=== PATIENT | female | born 1945 | race Caucasian/White ===

== ENCOUNTER 2020-05-06 10:07 | Day surgery (SDC) | payer MEDICARE ==
[2020-05-05 13:50] VITALS: BMI 27.3
[2020-05-06 10:27] LABS: PTT 28.6 sec (22.9-36.1)
[2020-05-06 10:28] LABS: INR-International Normal Ratio 1.1; Prothrombin Time 14.2 sec (12.0-14.7)
[2020-05-06] MEDS ORDERED: Sodium Bicarbonate 2.5 MEQ/5 ML VIAL ONE (10:44)
[2020-05-06] MEDS ORDERED: Lidocaine 1% PF 5 ML VIAL ONE (10:44)
--- NOTE | 2020-05-06 12:22 | ULT ---
ULTRASOUND-GUIDED PARACENTESIS DIAGNOSTIC AND THERAPEUTIC: DATE: 05/06/2020 HISTORY: 75-year-old female with symptomatic ascites: Abdominal pain and swelling. Highly suspicious for malig nant ascites due to peritoneal carcinomatosis on recent CT. TECHNIQUE: Signed informed consent obtained. A four-quadrant survey of abdomen performed. Site selected for puncture: Left lower quadrant. Overlying skin prepared and draped in usual sterile fashion. 25-gauge needle used to apply buffered lidocaine superficially and deeply. 5 Portuguese Yueh catheter with stylette advanced into the pocket of free intraperitoneal fluid. Drainage was limited to 4 L because this was a first-time paracentesis. After drainage, the Yueh catheter was removed. Patient tolerated the procedure well. No complications. One of the 1.6 L bags containing ascites fluid, was sent to laboratory for analysis. FINDINGS: Volume of ascites prior to procedure:large. Volume of ascites fluid in the drainage pocket after drainage:large. Volume of ascites fluid drained:4000 mL IMPRESSION: Successful therapeutic paracentesis, with drainage of 4 L of ascites fluid.
[2020-05-06 13:29] VITALS: BP 144/84; TEMP 98.1
[2020-05-06 13:34] LABS: RBC Count-Automated (BF) 374 /cu.mm; WBC/Nucleated-Auto (BF) 1104 uL
[2020-05-06] MEDS ORDERED: Prevnar 13-Val Conj/PF 0.5 ML SYRINGE IM ONE (14:00)
[2020-05-06 14:29] LABS: BF Color Yellow; Body Fluid Source Ascites Body Fluid; Clarity Hazy (Clear); Tube # EDTA
[2020-05-06 14:33] LABS: BF Segmented Neutrophils 5 %; Cell Count Non Hematic 27 %; Lymphocytes 66 %
== END 2020-05-06 12:00 | disposition home or self-care (01) ==
LOC: ULT 10:07
PROVIDERS: ATTEND Internal Medicine Gastroenterology
PROC: 0W9G3ZX Drainage of Peritoneal Cavity, Percutaneous Approach, Diagnostic (ICD-10-PCS; principal; 2020-05-06)
PROC: BW40ZZZ Ultrasonography of Abdomen (ICD-10-PCS; 2020-05-06)
DX: C80.1 Malignant (primary) neoplasm, unspecified (principal); R18.0 Malignant ascites; C78.6 Secondary malignant neoplasm of retroperitoneum and peritoneum; K21.9 Gastro-esophageal reflux disease without esophagitis; E11.9 Type 2 diabetes mellitus without complications; M19.90 Unspecified osteoarthritis, unspecified site; Z87.891 Personal history of nicotine dependence; Z79.84 Long term (current) use of oral hypoglycemic drugs; Z79.899 Other long term (current) drug therapy; Z88.8 Allergy status to other drugs, medicaments and biological substances
CPT/HCPCS: 49083; 82042; 84157; 85060; 85610; 85730; 88112; 88305; 88313; 88341; 88342; 89051

== ENCOUNTER 2020-05-13 15:31 | Outpatient (CLI) | payer MEDICARE ==
--- NOTE | 2020-05-13 16:14 | ULT ---
Exam:Rightlower extremity venous ultrasound with Doppler HISTORY: Rightlower extremity swelling, times a few days COMPARISON: 03/27/2017 TECHNIQUE: Grayscale, color flow, Doppler imaging and spectral wave muscle performed right lower extr emity venous system FINDINGS: There is compressibility, presence of flow and augmentation in the common femoral vein, femoral vein and popliteal vein. There is flow in the posterior tibial vein. There is flow in the greater saphenous vein and profunda femoral vein IMPRESSION: No thrombus in the right lower extremity deep venous system.
== END 2020-05-13 15:32 | disposition home or self-care (01) ==
LOC: ULT 15:31
PROVIDERS: ATTEND Internal Medicine Hematology & Oncology
DX: M79.89 Other specified soft tissue disorders (principal)

== ENCOUNTER 2020-05-18 17:54 | Inpatient (IN) | payer MEDICARE, OTHER ==
[~2020-05-18 17:54] MED LIST: Benzocaine 20% Spray 60 ML CAN ONE
--- NOTE | 2020-05-18 19:48 | PDOC.FPRHP ---
- History of Present Illness Chief Complaint: fever History of Present Illness: Pt is a 75yo female with recent dx of stage 3 ovarian cancer who is a direct admit from [facility] for fever. She was diagnosed with ovarian cancer in April 2020 and had first round of chemo last . Dr. Bustamante is her oncologist. She has been feeling weak and having diarrhea. Went to appointment with multicultural manager and was found to have fever and sent to ED. She says she hasn 't been eating due to decreased appetite. Says she is drinking fluids. C/o SOB due to increasing abdominal distention. States that her cancer has spread to peritoneum. Had paracentesis done on 05/17 and one week prior, most recently they removed 5L, replaced 2L. In ED: Tmax 102F. Found to have neutropenic fever, WBC 0.8. Na 129. Given cefepime, levaquin and 3L IVF ED Course: 2L LR, 1L NS, levofloxacin 500mg po, cefepime 2g, acetaminophen 1g, Dilaudid 0.25mg - Allergies/Adverse Reactions Allergies Allergy/AdvReac Type Severity Reaction Status Date / Time fluorouracil [From Efudex] Allergy Severe edema/hives Verified 05/19/20 00:17 - Home Medications Medication Instructions Recorded Confirmed Type Esomeprazole Magnesium [Nexium 40 mg PO DAILY 05/05/20 05/17/20 History 24Hr] Mineral Oil 30 ml PO DAILY PRN 05/05/20 05/17/20 History Multivit-Min/Iron/Folic/Lutein 1 tablet PO DAILY 05/05/20 05/17/20 History [Centrum Silver Women] Rosuvastatin [Crestor] 20 mg PO DAILY 05/05/20 05/17/20 History Simethicone [Gas-X] 62.5 mg PO BID 05/05/20 05/17/20 History glipiZIDE [Glucotrol XL] 5 mg PO QAM-WM 05/05/20 05/17/20 History sitaGLIPtin Phosphate [Januvia] 100 mg PO DAILY 05/05/20 05/17/20 History traMADol HCl [Tramadol HCl] 50 mg PO Q6HR PRN 05/14/20 05/17/20 History HYDROcodone/Acetaminophen 1 each PO Q6H PRN 05/17/20 05/17/20 History [Hydrocodone-Acetamin 5-325 mg] Loperamide HCl [Imodium A-D] 2 mg PO ASDIR PRN 05/17/20 05/17/20 History Ondansetron [Zofran ODT] 8 mg PO Q8HR PRN 05/17/20 05/17/20 History - History PMHx: Stage 3 ovarian caner with mets to peritoneum and possibly kidney, GERD, DM PSHx: partial hysterectomy, vaginal prolapse repair, R shoulder FHx: alcoholism in multiple family members Social: former smoker 1ppd for 28years, no alcohol or drug use - Review of Systems General: reports: fever/chills, fatigue Eyes: denies: eye pain ENT: denies: nasal congestion Respiratory: reports: shortness of breath. denies: cough Cardiovascular: denies: chest pain, palpitation, edema Gastrointestinal: reports: diarrhea, abdominal pain. denies: vomiting Genitourinary: denies: dysuria Skin: denies: rashes Musculoskeletal: denies: swelling Neurological: reports: weakness - Vital signs BP: 70/46, HR 119, RR 20, O2 94% on 1L NC, T 97.8F - Physical Exam -Constitutional: appeared lethargic, talking with eyes closed throughout exam, AO x3, increased work of breathing HEENT: normocephalic and atraumatic, grossly normal vision, grossly normal hearing -HEENT: dry MM Neck: trachea midline Chest: no-tender to palpation Heart: RRR, normal S1/S2, no murmurs/rubs/gallops, pulses present Abdomen: soft, bowel sounds present -Abdomen: distended abdomen, tender to palpation over lower quadrants Musculoskeletal: normal structure, normal tone Neurological: no focal deficit -Skin: pale appearing, cap refill 3s, poor turgor Psychiatric: intact recent and remote memory FMR H&P: Results - Labs Result Diagrams: 05/19/20 03:59 05/19/20 03:59 FMR H&P: A/P - Plan #Neutropenic fever 2/2 chemotherapy - WBC 0.8, Tmax 102F at outside ED - pending blood and urine cultures and UA to evaluate for source - CXR at outside hospital read as no acute process - oncology, Dr Bustamante, was consulted from outside hospital, will put in consult here, appreciate recs - pending procal, C diff, COVID - Abx: Levaquin and cefepime started at outside hospital, will continue. consider adding vanc if hemodynamically unstable or if pneumonia thought to be source. Current hypotension thought to be due to dehydration - Reglan PRN for nausea; tylenol PRN for fever; morphine PRN for pain with parameter of not given if Ps<100 #Hypotension - likely due to dehydration - give 3L IVF at outside hospital - on PE had dry MM, poor turgor and prolonged cap refill - 1L bolus NS and then mIVF #Hyponatremia - Na 129 - Will give 1L NS and then mIVF - recheck BMP in approx 6 hours #diarrhea - started after first round of chemo - pending C diff #thrombocytopenia - Plt 143 - Will continue to monitor #hypoalbuminemia - paracentesis yesterday with removal of 5L and replaced 2L - consider giving albumin if hypotension persists #stage 3 ovarian cancer - consult oncology - morphine prn pain - consult palliative care #GERD - continue home med: esomeprazole #DM - SSI - glucose checks ACHS Diet: regular Ppx: Lovenox Code: DNR Dispo: admit to onc, inpt, LOS>48hours Case discussed with Dr. Aguilar FMR H&P: Upper Level - Plan Date/Time: 05/18/201947 I, Mandie Campos MD, have evaluated this patient and agree with findings/plan as outlined by director internal audit resident. Pertinent changes/additions are listed here. This is a 75yo F here today after being sent over from [facility] for neutropenic fever, PMH of stage 3 ovarian cancer with mets to peritoneum. She is s/p first round of chemo last week. Has had to get 2 paracentesis over the last week due to increasing fluid. She states that she was found to have an elevated temp of 102.5F. She has been feeling very weak, decreased appetite, nausea and diarrhea over the last week since chemo. She follows with Dr. Bustamante. No sick contacts. Tested negative for COVID 2-3 weeks ago. See director internal audit note for full details on HPI and other histories. PE remarkable for mildly distended abdomen that was diffusely tender to touch, dry MM, poor skin turgor. Plan: Neutropenic fever 2/2 recent chemotherapy Severe neutropenia - ANC 152. Fever up to 102.5F at outside ER. CXR with no consolidations. No source of infection currently. - Consult oncology, Dr. Bustamante aware of patient. Appreciate recs. - Blood and Urine cx pending. UA pending. - Procal pending. - Levoquin and cefepime for broad spectrum abx coverage. Will not add gram + coverage at this time as no sign of skin/soft tissue infxn, mucositis, catheter related infection, PNA. She did have low BP but thought to be more to dehydration/malnutrition at this time. - COVID swab pending - Reglan PRN for nausea; tylenol PRN for fever; morphine PRN for pain Hyponatremia Na 129, likely 2/2 malnutrition - Will give 1L NS and give mIVF. Will recheck BMP to make sure going in right direction. Hypotension s/p 3 L at outside ER. - Still clinically dry, will give another L of NS and start on mIVF. Encourage PO hydration. Reg diet. Thrombocytopenia Plt 143 - Will continue to monitor. May need plt transfusion if <20 Diarrhea likely 2/2 chemo - Will order C diff just to r/o Dispo: admit to onc, inpt Diet: reg Ppx: Lovenox Code: DNR - palliative care consulted for family support, symptom management Case discussed with Dr. Aguilar Addendum - Attending - Attending Attestation Date/Time: 05/18/20 3530 I personally evaluated the patient and discussed the management with Dr. Pal I agree with the History, Examination, Assessment and Plan documented above with any addition or exceptions noted below- 75yo F here today after being sent over from [facility] for neutropenic fever, PMH of stage 3 ovarian cancer with mets to peritoneum. She is s/p first round of chemo last week. Has had to get 2 paracentesis over the last week due to increasing fluid. She states that she was found to have an elevated temp of 102.5F. She has been feeling very weak, decreased appetite, nausea and diarrhea over the last week since chemo. She follows with Dr. Bustamante. No sick contacts. Tested negative for COVID 2-3 weeks ago. PMH/PSH/Meds/SH reviewed and agree with resident's documentation. T102.5 P120 RR22 BP 70/46 Exam repeated by me and agree with resident's findings. Labs : WBC=0.8, H/H=12.7/37.5, Ntl=740, Diff=19N/80L, Km=356, K=3.8, Cl=93, CO2=22, BUN/Cr=20/0.81, Jpln=439, trop I=0.02. CXR- NAD. A/P: 1) Neutropenic fever- Admit to oncology/medical. Blood cultures drawn in [facility]. Will obtain U/A and urine culture. Continue cefepime and levaquin. Will check procalcitonin. 2) Septic shock - will give additional fluid bolus and if BP remains low, will need to consider pressors. 3) Stage 3 ovarian cancer - Dr. Bustamante aware of patient. 4) DM- diet controlled; continue to monitor BG.
[2020-05-18] MEDS ORDERED: Acetaminophen 325 MG TAB PO PRN (20:43)
[2020-05-18] MEDS ORDERED: Ondansetron ODT 4 MG TAB PO PRN (20:43)
[2020-05-18] MEDS ORDERED: Acetaminophen 650 MG Suppository PR PRN (20:43)
[2020-05-18] MEDS ORDERED: Morphine 4 MG/ML VIAL SLOW IVP PRN (21:10)
[2020-05-18] MEDS ORDERED: Sodium Chloride 0.9% 1,000 ML IV SCH ×2 (21:15→23:59)
[2020-05-18] MEDS ORDERED: HumaLOG 300 UNITS/3 ML VIAL SC PRN (21:32)
[2020-05-18] MEDS ORDERED: Dextrose 50% Abboject 50 ML SYRINGE SLOW IVP PRN (21:32)
[2020-05-18] MEDS ORDERED: Dextrose 5% in Water 1,000 ML IV PRN (21:32)
[2020-05-18] MEDS: Ondansetron PF 4 MG/2 ML Vial IVP PRN (21:40)
[2020-05-18 21:54] LABS: ALT (SGPT) 21 U/L (8-55); AST (SGOT) 29 U/L (5-34); Albumin 2.1 g/dL (3.4-4.8); Alkaline Phosphatase 40 U/L (40-110); Anion Gap 12 mmol/L (10-20); BUN (Urea Nitrogen) 22 mg/dL (9.8-20.1); Bilirubin, Total 0.5 mg/dL (0.2-1.2); Calc. Creatinine Clearance 0 mL/min (70-130); Carbon Dioxide 21 mmol/L (23-31); Chloride 99 mmol/L (98-107); Estimated GFR-MDRD 75; Globulin 2.5 g/dL (2.4-3.5); Glucose 101 mg/dL (83-110); Potassium 3.1 mmol/L (3.5-5.1); Protein, Total 4.6 g/dL (6.0-8.3); Sodium 129 mmol/L (136-145)
[2020-05-18 22:03] LABS: Bacteria/HPF 1+ HPF (None Seen); Bilirubin Negative (Negative); Blood, Urine Negative (Negative); Clarity Turbid (Clear); Glucose, Urine (Dipstick) 30 mg/dL (Negative); Ketone, Urine 20 mg/dL (Negative); Leukocyte Negative Leu/uL (Negative); Nitrite Negative (Negative); Protein, Urine (Dipstick) 70 mg/dL (Neg-Trace); RBC/HPF 0-3 HPF (0-3); Squamous Epithelial None Seen HPF (0-3); pH, Urine 5.5 (5.0-9.0)
[2020-05-18] MEDS: Sodium Chloride 0.9% 1,000 ML IV SCH (22:51)
--- NOTE | 2020-05-18 23:18 | PDOC.EVN ---
Event Note - Event Note Event Note: Shira Hernandez called @ 2300. Nurse said manual BP was 52/48. Pt still responsive, AOx3, no other change in VS. Placed in trendelenburg. Repeat BP 72/58. Pt examined at bedside by Andres Huffman and Jeff. Parks had been placed, 500mL mario colored urine. Had been given 1L bolus NS and started on maintenance fluid. Will give another bolus IVF. Transfer to CCU. Will start on levophed gtt through peripheral line. Consider central line if on levophed drip longer than 24hr.
[2020-05-18] MEDS: Norepinephrine 8 MG/0.9% NS 250 ML IVPB PRN (23:58)
[2020-05-19] MEDS: Morphine 4 MG/ML VIAL SLOW IVP PRN ×4 (00:44→23:13)
[2020-05-19] MEDS ORDERED: Potassium Chloride 20 MEQ TAB PO SCH (01:15)
[2020-05-19] MEDS: Ondansetron PF 4 MG/2 ML Vial IVP PRN ×3 (02:25→17:42)
[2020-05-19 04:37] LABS: ALT (SGPT) 29 U/L (8-55); AST (SGOT) 53 U/L (5-34); Albumin 2.2 g/dL (3.4-4.8); Alkaline Phosphatase 45 U/L (40-110); Anion Gap 15 mmol/L (10-20); BUN (Urea Nitrogen) 23 mg/dL (9.8-20.1); Bilirubin, Total 0.6 mg/dL (0.2-1.2); Calc. Creatinine Clearance 71 mL/min (70-130); Carbon Dioxide 19 mmol/L (23-31); Chloride 100 mmol/L (98-107); Estimated GFR-MDRD 77; Globulin 2.8 g/dL (2.4-3.5); Glucose 71 mg/dL (83-110); Potassium 3.5 mmol/L (3.5-5.1); Sodium 130 mmol/L (136-145)
[2020-05-19 04:44] LABS: Hemoglobin 12.9 g/dL (12.0-16.0); Mean Corpuscular HGB CONC 31.9 g/dL (32.0-36.0); Mean Corpuscular Hemoglobin 29.8 pg (27.0-31.0); Mean Corpuscular Volume 93.5 fL (78.0-98.0); Mean Platelet Volume 9.1 fL (7.4-10.4); Platelet Count 81 thou/uL (130-400); Red Blood Cell (RBC) Count 4.34 mill/uL (4.20-5.40); White Blood Cell (WBC) Count 0.6 thou/uL (4.8-10.8)
[2020-05-19 05:18] LABS: Eosinophils 2 % (0-10); Lymphocytes 86 % (21-51); MDiff Complete? YES; Monocytes 2 % (0-10); Neutrophil 10 % (42-75); Platelet Morphology Comment Appears Decreased
[2020-05-19] MEDS: Cefepime 2 GM in Sodium Chloride 0.9% 100 ML IVPB SCH ×2 (06:03→17:08)
[2020-05-19] MEDS: Sodium Chloride 0.9% 1,000 ML IV SCH ×2 (06:03→09:17)
--- NOTE | 2020-05-19 08:13 | PDOC.BPN ---
- Brief Progress Note Patient has PCP of Dr. Osborne, d/t this we are transferring care to the [facility]. I called and spoke with on-call hospitalist and gave checkout at 0810. Physician accepted care and will see the patient today.
[2020-05-19] MEDS: Enoxaparin Sodium 40 MG/0.4 ML SYRINGE SC SCH (09:18)
[2020-05-19] MEDS ORDERED: Dextrose 50% Abboject 50 ML SYRINGE SLOW IVP PRN (09:41)
[2020-05-19] MEDS ORDERED: Dextrose 5% in Water 1,000 ML IV PRN (09:41)
[2020-05-19] MEDS: Dextrose 5 % And 0.9 % NaCl 1,000 ML IV SCH ×3 (09:53→23:50)
[2020-05-19] MEDS ORDERED: Vancomycin 1 GM in Premix Bag 1 BAG IVPB SCH (10:00)
[2020-05-19] MEDS ORDERED: Vancomycin HCl 1.5 GM in Sodium Chloride 0.9% 250 ML 300 ML IVPB SCH (11:00)
--- NOTE | 2020-05-19 12:40 | CON ---
DATE OF CONSULTATION: REASON FOR CONSULTATION: Ovarian cancer. HISTORY OF PRESENT ILLNESS: Ms. Whitlock is a 75-year-old female who was diagnosed with high-grade papillary carcinoma earlier this month. Biopsy was obtained from ascitic fluid. She was having abdominal distention and bloating, saw Dr. Butler, and a paracentesis was performed, which led to the diagnosis. She started chemotherapy last week on and then had a paracentesis on Sunday with removal of 5 L. They then had replaced 2 L back secondary to hypotension. She began to have worsening shortness of breath and abdominal distention and presented to the emergency room in [place]. She was neutropenic and had fever. She was transferred to this facility for further treatment. She was given several liters of fluid. She remained hypotensive and was transferred to the ICU. She remains on a Levophed drip for blood pressure support. She is tachycardic. Her stool tested positive for C difficile and she is on appropriate antibiotics. She complains of weakness and diarrhea. Plan for the patient to have 3 cycles of neoadjuvant chemotherapy followed by surgery with 3 cycles of adjuvant chemotherapy. She was to follow up Gynecology Oncology in the next week or so. PAST MEDICAL HISTORY: 1. Newly diagnosed papillary carcinoma. 2. Type 2 diabetes. PAST SURGICAL HISTORY: 1. Vaginal hysterectomy with ovaries intact. 2. Cataract surgery. 3. Bladder and rectum prolapse repair. ALLERGIES: NO KNOWN DRUG ALLERGIES. HOME MEDICATIONS: 1. Glipizide. 2. Januvia. 3. Nexium. 4. Rosuvastatin. 5. Compazine. 6. Hydrocodone. 7. Zofran. FAMILY HISTORY: No history of ovarian cancer. SOCIAL HISTORY: , one child. A [id number] history of smoking. No alcohol or illicit drug use. REVIEW OF SYSTEMS: A 10-point review of systems is negative except for noted in HPI. PHYSICAL EXAMINATION: VITAL SIGNS: Temperature 98.3, pulse is 126, respiratory rate 31, BP is 94/55, and she is 93% on 2 L nasal cannula. GENERAL: This is a chronically ill-appearing female, in mild distress. HEENT: Normocephalic and atraumatic. Pupils equal and reactive to light. NECK: Supple. CV: Regular rate and rhythm. She is tachycardic. LUNGS: Clear anterior. ABDOMEN: Distended and nontender. Bowel sounds are positive. EXTREMITIES: No clubbing or cyanosis. SKIN: No rash. HEMATOLOGIC: No petechiae or purpura. NEUROLOGIC: Nonfocal. PERTINENT LABORATORY DATA AND X-RAYS: Current WBCs are 0.6, hemoglobin 12.9, hematocrit 40.6, and platelet count 81,000. She has 10% neutrophils and 86% lymphocytes. Sodium 130, potassium 3.5, chloride 100, CO2 of 19, BUN 23, creatinine 0.74, and calcium 7. Bilirubin 0.6, AST is 53, ALT is 29, and alkaline phosphatase is 45. Serum total protein is 5, albumin 2.2, and globulin 2.8. Prolactin is 21.7. Urine shows 1+ bacteria with negative leukocyte esterase, negative nitrites. ASSESSMENT: 1. Neutropenic fever. 2. Ovarian cancer status post cycle 1 of chemotherapy. 3. Clostridium difficile infection. 4. Ascites status post paracentesis 2 days ago. DISCUSSION: The patient is on appropriate antibiotics. Her blood pressure is supported with IV fluids and Levophed drip. We will start pegfilgrastim to increase her white count. The case has been discussed with Dr. Bustamante. The patient is a DNR. We will follow along with her hospital course. Thank you for the consult. Job ID: [id number]
--- NOTE | 2020-05-19 12:48 | PDOC.EVN ---
Event Note - Event Note Event Note: Inherited the patient this morning. Abdominal tenderness persists though unlikely peritonitis. Escalated ABx due to HD instability by adding vancomycin. C. diff assay +antigen, -ve PCR tox c/w nontoxigenic c.diff. Likely etiology of diarrhea chemotherapy-related, possibly mucositis (will obtain records re: chemo ). Pending ID evaluation. Oncology and palliative team onboard
[2020-05-19 12:56] LABS: SARS-CoV-2 MS2 Positive; SARS-CoV-2 N Gene Negative; SARS-CoV-2 S Gene Negative; SARS-CoV-2 by NAA Not Detected (NotDetected); SARS-CoV-2 orf1ab Negative
[2020-05-19] MEDS: Loperamide HCl 2 MG CAP PO PRN ×3 (13:26→23:14)
--- NOTE | 2020-05-19 14:31 | PDOC.PALCO ---
Palliative Care Consult - Consult Details Requesting Physician: Dr Campos Reason for Consult: goals of care, family support - Pertinent HPI 75 year old female who lives in an independent home setting with her . She was recently diagnosed with high grade papillary carcinoma late April. Initial chemotherapy was 05/13/2020. Paracentesis on 05/17/2020 with removal of 5 liters of fluid, with subsequent replacement of 2 liters of fluid for hypotension. Incontinent of bowel with nausea over the weekend. Onset and increase in shortness of breath and abdominal distention and presented to the emergency room in [place] where she was found to be neutropenic with fever. Transferred to [facility] for higher level of care. Fluid rehydration was attempted but secondary to persistent hypotension she was transferred to CCU for higher level of care. Levophed. ABX therapy for C dif. Significant abdominal pain, nausea, weakness. - Pertinent PMH Recent diagnosis of papillary carcinoma, DM II - Social History Smoking Status: Never smoker Smoking: no tobacco exposure Alcohol Use: rarely Drug Use History: none Living Situation: independent, - Medications MAR Reviewed: Yes - Allergies Allergies/Adverse Reactions: Allergies Allergy/AdvReac Type Severity Reaction Status Date / Time fluorouracil [From Efudex] Allergy Severe edema/hives Verified 05/19/20 00:17 - Subjective Weakness, short of breath with conversation. Abdominal pain, nausea - ROS Constitutional: alert, loss appetite, weakness ENT: dry mouth, other (Denies difficulity swallowing, congestion) Respiratory: shortness of breath Cardiology: light headedness Gastrointestinal: diarrhea, nausea, vomiting Musculoskeletal: other (Denies musculoskeletal pain) Neurological: other (Negative for confusion,tremor) - Objective Vital Signs: Vital Signs - Most Recent Temp Pulse Resp BP Pulse Ox 97.7 F 119 H 20 70/46 L 99 05/19/20 12:00 05/18/20 19:44 05/18/20 19:44 05/18/20 19:44 05/19/20 10:41 Palliative Performance Scale: 40 (However prior to recent health status change PPS 90) - Physical Exam Constitutional: ill appearing HEENT: EOMI, moist MMs Respiratory: no rhonchi, no wheezing, unlabored breathing Cardiovascular: RRR Deviation from normal: Tachycardic Gastrointestinal: incontinent (Distended, tender) Genitourinary: barber catheter Musculoskeletal: no cyanosis, no clubbing Neurology: moves all 4 limbs, no focal deficits Skin: cap refill <2 seconds Deviation from normal: Pallor Psychiatric: A&O x 3, depressed - Problem List (1) Palliative care encounter Code(s): Z51.5 - ENCOUNTER FOR PALLIATIVE CARE Current Visit: Yes Status: Acute (2) Neutropenic fever Code(s): D70.9 - NEUTROPENIA, UNSPECIFIED; R50.81 - FEVER PRESENTING WITH CONDITIONS CLASSIFIED ELSEWHERE Current Visit: Yes Status: Acute (3) Ascites Code(s): R18.8 - OTHER ASCITES Current Visit: Yes Status: Acute (4) Ovarian cancer Current Visit: Yes Status: Acute - Plan/Recommendations Plan: Mrs Whitlock confirms that she is a DNAR. Her daughter further relayed that this is her mothers wishes. Mrs Whitlock states she wishes to stop treatment, and go home. Discussed working through current health issues and to further discuss with Oncology. Her anniversary is today so discussed goal for today to be seeing her and working toward improvement of pain. Then discuss tomorrow with Dr Bustamante, her and daughter about continuation of chemo and surgery. As per patient request visited with her daughter Samantha and Femi. Mrs Whitlock has one daughter and two grandchildren , they call her Santosh. She cares for her mother who is in a long-term in [place], and her brother who was in a tragic accident last fall and now resides in a long-term in [place]. Her daughter relays that he mother has always been a "go getter" and caregiver. She also relayed that in the past her mother would experience hopelessness and depression. Emotional Support, consideration for increase in pain medication. Communicated with Dr Bustamante and Dr Rios. [75] minutes spent on this encounter with >50% of the time in counseling and coordination of care. Thank you for this very appropriate consult.
[2020-05-19] MEDS: Albumin 25% 25 GM/100 ML BOT IVPB SCH ×2 (14:46→20:43)
[2020-05-19] MEDS: Vancomycin HCl 25 MG/ML Oral PO SCH (14:56)
--- NOTE | 2020-05-19 17:56 | CON ---
DATE OF CONSULTATION: 05/19/2020 REASON FOR CONSULTATION: Neutropenic fever. HISTORY OF PRESENT ILLNESS: A 75-year-old with history of type 2 diabetes with stage III ovarian cancer with peritoneal and possibly retroperitoneal mets, who lives in [place] and has received her 1st course of chemotherapy, monitored by Dr. Bustamante. Paracentesis performed on 05/06, yielded positive for high-grade papillary carcinoma, so this is a quite recent diagnosis and there is also an issue of possible obstruction of one of her kidneys and her urologist in [place] was considering placement of a stent until she developed this complication. The imaging study was done on 05/04 and it showed peritoneal carcinomatosis with moderate left hydronephrosis and hydroureter, large amount of ascites, there was necrotic lymph node in the central mesentery as well. So, the patient received her 1st course of chemo and tolerated well for 2 days, and after that, she started becoming weaker and did not have any documented fever. Because of weakness, the brought her to the emergency room in [place], and as she was being readied for discharge, she developed a temperature 103 and then she was transferred over here and admitted. She was admitted to the ICU because of persistence of hypotension and she had to be administered Levophed drip after IV fluid challenge. Right now, she is awake and alert, feeling a little better. is in the room with her. She denies any headaches. No visual symptoms, sore throat, odynophagia, or dysphagia. No vomiting. She continues to have quite profuse diarrhea. No bleeding. The abdominal symptoms have improved after large volume paracentesis, but she still has a little bit of tenderness throughout her abdominal compartment. No respiratory symptoms. No joint symptoms. No skin disorder. No neurological symptoms. MEDICAL HISTORY: 1. Ovarian cancer with peritoneal carcinomatosis. 2. 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 3. Type 2 diabetes. PAST SURGICAL HISTORY: Includes: 1. Hysterectomy. 2. Right shoulder repair. FAMILY HISTORY: Noncontributory. SOCIAL HISTORY: Former smoker. Lives in [place]. CURRENT MEDICATIONS: 1. Cefepime 2 g q.12. 2. Vancomycin IV. 3. She received filgrastim. 4. She is on Levophed. 5. She is on levofloxacin as well. PHYSICAL EXAMINATION: VITAL SIGNS: T-max 99 and now 97.7, blood pressure 97/56, pulse 122, respirations 33, and O2 saturation 94. SKIN: The patient has a peripheral IV access. She is voiding via an indwelling catheter. No lymphadenopathy. HEENT: Ocular movements conjugate. Sclerae white. Pupils are equal. Oral cavity normal. NECK: Supple. LUNGS: Symmetric, clear breath sounds. HEART: S1 and S2. Regular rate without murmurs. No S3 or S4. ABDOMEN: Somewhat distended particularly in the upper segments with diffuse mild tenderness on percussion. Bowel sounds are not increased. Bladder is not distended. EXTREMITIES: No joint inflammatory activity. No edema. Pulses 1+ in dorsalis pedis. Moves all extremities equally. NEUROLOGIC: Awake, alert, oriented. Speech normal. Recollection normal. LABORATORY STUDIES: White cell count 0.6, hemoglobin 12, platelets 81,000, and 86% lymphocytes. Sodium 130, creatinine 0.74, bilirubin 0.6. Urinalysis with 4 to 6 wbc's. COVID was not detected. C difficile antigen positive, toxin PCR negative. Campylobacter assay was negative. Shiga toxin assay negative. There is no evidence of elevated lactoferrin. Two sets of blood cultures thus far no growth. Urine culture, no growth at 12 hours. I do not see a chest x-ray. ASSESSMENT: 1. Stage III ovarian cancer with peritoneal carcinomatosis as well as hydronephrosis of left kidney, probably from the retroperitoneal involvement. 2. Initiation of chemotherapy with neutropenic fever. 3. Hypotension. DISCUSSION: The patient has received filgrastim and I would expect a prompt improvement in her neutrophil count and that should lead to resolution of the inflammatory process. We will discontinue levofloxacin. Add oral vancomycin single dose for prophylaxis of C difficile colitis. Since she does not have a port, she probably does not require vancomycin either. I do not see any obvious source. The urinary tract is a concern because of the evidence of hydronephrosis on the left side. The cultures are thus far negative. Translocation from gastrointestinal tract is more likely scenario here in the setting of neutropenia. Job ID: [id number]
--- NOTE | 2020-05-19 22:41 | CON ---
DATE OF CONSULTATION: 05/19/2020 HISTORY OF PRESENT ILLNESS: Ms. Whitlock is a 75-year-old female, recently diagnosed with peritoneal papillary carcinoma. She is tentatively managed with neoadjuvant chemo and abdominal surgery and then followup chemo. She presented with neutropenia. Her only complaint is that she hurts all over and this feels terrible. Prior to this, she has dealt with diabetes, hysterectomy, and shoulder repair. FAMILY HISTORY: Negative. SOCIAL HISTORY: She does not smoke or drink. REVIEW OF SYSTEMS: Otherwise negative. PHYSICAL EXAMINATION: VITAL SIGNS: Heart rate is 120, blood pressure 114/53, respiratory rates in the 20s, and oximetry is 91%. HEENT: Pupils are equal. Sclerae are anicteric. She is pale. LUNGS: Clear. HEART: Regular rhythm. ABDOMEN: Soft and protuberant. EXTREMITIES: Without asymmetry. NEURO: Grossly nonfocal. LABORATORY DATA: White count 600, hemoglobin 12.9, and platelets 81,000. Sodium 130, potassium 3.5, chloride 100, bicarb 19, BUN 23, creatinine 0.7, glucose was in the 50s. Then, her IV fluids were changed and she has been 95 to 162 since then. Urinalysis was remarkable for 4 to 6 white cells. COVID screen was negative. IMPRESSION: Neutropenic, clinical sepsis. ID is following. She is not having any acute respiratory issues. I will be happy to follow the other physicians. Increasing her fluids would probably be helpful. This is a 70 min visit with greater than 50% of time spent on unit with coordination of care. Job ID: [id number] [facility]
[2020-05-20] MEDS: Albumin 25% 25 GM/100 ML BOT IVPB SCH ×3 (02:55→14:23)
[2020-05-20 03:54] LABS: White Blood Cell (WBC) Count 0.4 thou/uL (4.8-10.8)
[2020-05-20 04:02] LABS: Anion Gap 13 mmol/L (10-20); BUN (Urea Nitrogen) 28 mg/dL (9.8-20.1); Calc. Creatinine Clearance 60 mL/min (70-130); Calcium 6.9 mg/dL (7.8-10.44); Carbon Dioxide 19 mmol/L (23-31); Chloride 104 mmol/L (98-107); Estimated GFR-MDRD 64; Glucose 293 mg/dL (83-110); Magnesium 2.4 mg/dL (1.6-2.6); Phosphorus 2.8 mg/dL (2.3-4.7); Potassium 3.6 mmol/L (3.5-5.1); Sodium 132 mmol/L (136-145)
[2020-05-20 04:22] LABS: Hemoglobin 11.1 g/dL (12.0-16.0); Mean Corpuscular HGB CONC 32.8 g/dL (32.0-36.0); Mean Corpuscular Hemoglobin 30.9 pg (27.0-31.0); Mean Corpuscular Volume 94.4 fL (78.0-98.0); Mean Platelet Volume 10.8 fL (7.4-10.4); Platelet Count 32 thou/uL (130-400); Platelet Morphology Comment Appears Decreased; RBC Distribution Width 11.1 % (11.5-14.5); RBC Morphology Normal; Red Blood Cell (RBC) Count 3.57 mill/uL (4.20-5.40)
[2020-05-20] MEDS: Cefepime 2 GM in Sodium Chloride 0.9% 100 ML IVPB SCH ×2 (05:17→17:42)
[2020-05-20] MEDS: HumaLOG 300 UNITS/3 ML VIAL SC PRN ×2 (05:24→13:33)
[2020-05-20] MEDS: Dextrose 5 % And 0.9 % NaCl 1,000 ML IV SCH ×4 (05:47→18:15)
--- NOTE | 2020-05-20 08:20 | PDOC.MOPN ---
Interval History: her pain is much better and she says she is much better. mild SOB but not as bad as yesterday - Vital Signs Vital Signs: Vital Signs (12 hours) Temp 05/20/20 08:00 98.8 F 05/20/20 04:00 98.7 F 05/20/20 00:00 98.3 F Weight Admit Weight 146 lb Weight 156 lb 1.396 oz Most Recent Monitor Data Heart Rate from ECG 116 NIBP 127/64 NIBP BP-Mean 85 Respiration from ECG 28 SpO2 95 - Physical Exam General: Mild distress HEENT: Atraumatic Lungs: Other (decreased BS in bases due to poor effort) Cardiovascular: Regular rate, Other (tachy) Abdomen: Other (+ distension and dullness, obvious ascites) Extremities: No edema Neurological: Normal speech Psych/Mental Status: Mental status NL, Other (depressed) - Labs Result Diagrams: 05/20/20 03:03 05/20/20 03:03 Lab results: Laboratory Results - last 24 hr 05/20/20 03:03: WBC 0.4 L*, RBC 3.57 L, Hgb 11.1 L, Hct 33.7 L, MCV 94.4, MCH 30.9, MCHC 32.8, RDW 11.1 L, Plt Count 32 L, MPV 10.8 H, Neutrophils % (Manual) Not Reportable, Lymphocytes # Not Reportable, Plt Morphology Comment Appears Decreased L, RBC Morph Comment Normal 05/20/20 03:03: Sodium 132 L, Potassium 3.6, Chloride 104, Carbon Dioxide 19 L, Anion Gap 13, BUN 28 H, Creatinine 0.87, Estimated GFR (MDRD) 64, Glucose 293 H , Calcium 6.9 L, Phosphorus 2.8, Magnesium 2.4 05/19/20 20:53: POC Glucose 211 H 05/19/20 17:15: POC Glucose 162 H 05/19/20 11:32: POC Glucose 95 05/19/20 09:22: POC Glucose 52 L* 05/19/20 08:09: POC Glucose 57 L* 05/19/20 00:33: COVID-19 PCR Not Detected A/P - Problem (1) Sepsis associated hypotension Current Visit: Yes Code(s): A41.9 - SEPSIS, UNSPECIFIED ORGANISM; I95.9 - HYPOTENSION, UNSPECIFIED Status: Acute (2) Ascites Current Visit: Yes Code(s): R18.8 - OTHER ASCITES Status: Acute (3) Neutropenic fever Current Visit: Yes Code(s): D70.9 - NEUTROPENIA, UNSPECIFIED; R50.81 - FEVER PRESENTING WITH CONDITIONS CLASSIFIED ELSEWHERE Status: Acute (4) Ovarian cancer Current Visit: Yes Status: Acute - Plan Plan: 1. cont abx 2. cont morphine 3. cont granix, her insurance denied neulasta so she did not receive it 4. we had a long discussion about prognosis. I believe she has the potential to improve and for her QOL to get better. 5. will follow with you
--- NOTE | 2020-05-20 08:26 | PDOC.FMACP ---
Advance Care Planning - Problem (1) Sepsis associated hypotension Status: Acute Code(s): A41.9 - SEPSIS, UNSPECIFIED ORGANISM; I95.9 - HYPOTENSION, UNSPECIFIED (2) Ascites Status: Acute Code(s): R18.8 - OTHER ASCITES (3) Neutropenic fever Status: Acute Code(s): D70.9 - NEUTROPENIA, UNSPECIFIED; R50.81 - FEVER PRESENTING WITH CONDITIONS CLASSIFIED ELSEWHERE (4) Ovarian cancer Status: Acute - Note Summary: Advanced Care Planning was discussed. The diagnosis, prognosis and goals of care were discussed. Appropriate forms and documentation to accomplish the goals of care were discussed. All questions were answered. The Palliative Care Team will be engaged to assist with completion of any outstanding forms that are needed. Time Spent (mins): 15 (we discussed her code status at length. I have encouraged her to reverse her DNR in case of an emergency. She will think about this and discuss with her family)
[2020-05-20] MEDS: Loperamide HCl 2 MG CAP PO PRN (09:04)
[2020-05-20] MEDS: Morphine 4 MG/ML VIAL SLOW IVP PRN (09:08)
[2020-05-20] MEDS: Enoxaparin Sodium 40 MG/0.4 ML SYRINGE SC SCH (09:14)
[2020-05-20] MEDS: Vancomycin HCl 25 MG/ML Oral PO SCH (09:17)
--- NOTE | 2020-05-20 09:54 | PDOC.HOSPP ---
- Subjective Encounter Date: 05/20/20 Encounter Time: 08:00 Subjective: overnight, increased oxygen demand and respiratory rate. On encounter, stating that she feels better overall but short of breath and has shallow breathing. Otherwise no complaints. - Objective Vital Signs & Weight: Vital Signs (12 hours) Temp 05/20/20 08:00 98.8 F 05/20/20 04:00 98.7 F 05/20/20 00:00 98.3 F Weight Admit Weight 146 lb Weight 156 lb 1.396 oz Most Recent Monitor Data Heart Rate from ECG 116 NIBP 127/64 NIBP BP-Mean 85 Respiration from ECG 28 SpO2 95 I&O: 05/19/20 05/20/20 05/21/20 06:59 06:59 06:59 Intake Total 830.3 4926.4 Output Total 725 908 130 Balance 105.3 4018.4 -130 Result Diagrams: 05/20/20 03:03 05/20/20 03:03 Additional Labs: Accuchecks 05/19/20 05/19/20 05/19/20 20:53 17:15 11:32 POC Glucose 211 H 162 H 95 05/19/20 05/19/20 09:22 08:09 POC Glucose 52 L* 57 L* Hospitalist ROS - Review of Systems Constitutional: denies: chills, sweats Respiratory: reports: shortness of breath. denies: cough, pleuritic pain ( difficulty taking full breaths), sputum Gastrointestinal: reports: nausea, abdominal pain, diarrhea (improved). denies : vomiting Genitourinary: reports: dysuria, hematuria - Medication Medications: Active Medications Generic Name Dose Route Start Last Admin Trade Name Freq PRN Reason Stop Dose Admin Albumin Human 25 gm 05/19/20 14:30 05/20/20 09:17 Albumin 25% IVPB 05/20/20 14:31 25 gm Q6H MAYRA Administration Enoxaparin Sodium 40 mg 05/19/20 09:00 05/20/20 09:14 Lovenox SC Not Given 0900 MAYRA Cefepime HCl 2 gm/ Sodium 100 mls @ 200 mls/hr 05/19/20 06:00 05/20/20 05:17 Chloride IVPB 100 mls 0600,1800 MAYRA Administration Norepinephrine Bitartrate 250 mls @ 0 mls/hr 05/18/20 23:12 05/18/20 23:58 Levophed IVPB 250 mls PRN PRN Administration To maintain MAP > 65 Protocol Titrate Dextrose/Sodium Chloride 1,000 mls @ 175 mls/hr 05/19/20 09:45 05/20/20 05:47 D5 0.9% Ns IV 1,000 mls .[id number] MAYRA Administration Insulin Human Lispro 0 units 05/18/20 21:32 05/20/20 05:24 Humalog SC 4 unit .MILD SLIDING SCALE PRN Administration Mild Correctional Scale Loperamide HCl 2 mg 05/19/20 13:20 05/20/20 09:04 Imodium PO 2 mg Q2H PRN Administration Diarrhea/Loose Stools Morphine Sulfate 4 mg 05/18/20 21:35 05/20/20 09:08 Morphine SLOW IVP 4 mg Q4H PRN Administration Severe Pain (7-10) Ondansetron HCl 4 mg 05/18/20 20:43 05/19/20 17:42 Zofran IVP 4 mg Q6H PRN Administration Nausea/Vomiting Tbo-Filgrastim 480 mcg 05/19/20 09:00 05/20/20 09:18 Granix SC 480 mcg DAILY MAYRA Administration Vancomycin HCl 125 mg 05/20/20 09:00 05/20/20 09:17 First Vancomycin PO 125 mg DAILY MAYRA Administration - Exam General Appearance: ill appearing Neck: no JVD Heart - other findings: tachycardic 110-120s, sinus on tele Respiratory: CTAB, no rales, no ronchi, tachypneic Respiratory - other findings: stops while talking to catch breath Gastrointestinal: soft, tender to palpation (diffusely, unchanged compared to yesterday), distended (mildly) Extremities: no edema Psychiatric: A&O x 3 Hosp A/P - Plan #neutropenic fever afebrile since admission per ID, likely source GI translocation; on vanc and cefepime; vanc oral for c. diff PPx; defer to ID #ovarian cancer #Ascites -overnight increased oxygen demand and work of breathing -patient endorses some difficulty taking full breaths -currently on 175cc/hr NS/D5w, albumin; gross positive balance I/O; defer to PCCM -may be result of reaccumulation of ascitic fluid -abdominal ultrasound; therapeutic paracentesis if large volume; provide supplementation albumin depending on volume removed -oncology onboard, based on their recs patient will reconsider DNAR status DNAR ELOS 3-4 nights
[2020-05-20] MEDS: Vancomycin 1.5 GRAM/300 ML BAG 1.5 GM in Premix Bag 1 BAG IVPB SCH (10:03)
--- NOTE | 2020-05-20 10:49 | PDOC.PALPN ---
Palliative Progress Note - Subjective Awake, continues with shortness of breath. Abdominal pain improving. - Objective Vital Signs: Vital Signs - Most Recent Temp Pulse Resp BP Pulse Ox 98.8 F 119 H 20 70/46 L 96 05/20/20 08:00 05/18/20 19:44 05/18/20 19:44 05/18/20 19:44 05/19/20 20:00 - Physical Exam Constitutional: ill appearing HEENT: EOMI, moist MMs, sclera anicteric Respiratory: no wheezing, labored respirations Deviation from normal: tachypnea Cardiovascular: RRR Deviation from normal: intermitt tachycardia Gastrointestinal: incontinent Deviation from normal: distended, tender Musculoskeletal: pulses present Neurology: moves all 4 limbs, no focal deficits Skin: cap refill <2 seconds Deviation from normal: Pallor Psychiatric: A&O x 3, depressed Deviation from normal: anxious - Assessment (1) Palliative care encounter Code(s): Z51.5 - ENCOUNTER FOR PALLIATIVE CARE Current Visit: Yes Status: Acute (2) Neutropenic fever Code(s): D70.9 - NEUTROPENIA, UNSPECIFIED; R50.81 - FEVER PRESENTING WITH CONDITIONS CLASSIFIED ELSEWHERE Current Visit: Yes Status: Acute (3) Ascites Code(s): R18.8 - OTHER ASCITES Current Visit: Yes Status: Acute (4) Ovarian cancer Current Visit: Yes Status: Acute - Plan Plan: Family meeting with Dr Bustamante to review chemo and expected course. Revisited Goal. Will review pain medication as patient states some hallucinations with morphine/ however pain currently improved. See if patient agreeable to initiate antidepressant Discussed measures to remain positive. It will be imperative for family to daily see patient as appropriate secondary to nature of depression and hopelessness. Will revisit DNAR status. Discussed Coq10 at discharge as well as B complex Emotional support for patient and family [45] minutes spent on this encounter with >50% of the time in counseling and coordination of care. - ROS Constitutional: weakness ENT: dry mouth Respiratory: shortness of breath Gastrointestinal: abdominal pain, bowel incontinence, nausea, stomach discomfort Psychological: anxiety
--- NOTE | 2020-05-20 11:21 | ULT ---
Sonogram abdomen limited HISTORY: Increasing dyspnea. Evaluate for abdominal fluid. FINDINGS: 4 quadrant survey shows small amount of free fluid within the right side of the abdomen. No significant fluid on the left. Volume estimated at 1.5 L.
--- NOTE | 2020-05-20 13:08 | PRG ---
DATE OF SERVICE: 05/20/2020 SUBJECTIVE: Ms. Whitlock says she feels 100% better than she felt yesterday. OBJECTIVE: VITAL SIGNS: She is afebrile. Heart rate is 116, blood pressure 110/62, respiratory rate is 27. LUNGS: Clear. HEART: Regular rhythm. ABDOMEN: Soft. EXTREMITIES: No edema. LABORATORY DATA: White count is 400, hemoglobin 11.1, platelets 32,000. Electrolytes are unremarkable. IMPRESSION AND PLAN: 1. Neutropenic fever. 2. Peritoneal carcinomatosis. 3. Deconditioning. 4. Clostridium difficile. Antigen positive. Toxin negative. 5. Diarrhea, which also could be just secondary to recent chemo. She says that is a little better today. We will continue to follow. Hemodynamically stable. She can probably move out of Critical Care Unit. Job ID: [id number]
[2020-05-20] MEDS ORDERED: Dextrose 5 % And 0.9 % NaCl 1,000 ML IV SCH ×2 (17:36→17:44)
[2020-05-20] MEDS ORDERED: BIOTENE MOUTH SPRAY 44.3 ML MM PRN (17:45)
--- NOTE | 2020-05-20 17:47 | PDOC.EVN ---
Event Note - Event Note Event Note: received page regarding possible transfer out of MICU. Patient oxygen demand increased, 3L NC, RR 30s at time of conversation, has 1.5L ascitic fluid, and fluid supplementation may result in greater ascitic accumulation and respiratory compromise. Considering oncology advised patient to reconsider code status, reduced fluids to 100cc/hr and told nurse that if beds are required and patient remains stable, can transfer to IMCU. will reassess in AM with other teams involved in care.
[2020-05-20] MEDS ORDERED: Morphine 4 MG/ML VIAL SLOW IVP PRN (17:59)
[2020-05-20] MEDS ORDERED: Acetaminophen 500 MG TAB PO PRN (17:59)
--- NOTE | 2020-05-20 18:03 | PRG ---
DATE OF SERVICE: 05/20/2020 SUBJECTIVE: Ms. Whitlock has deteriorated. She was tachypneic when I saw her and was not very alert. She was able to answer questions with some effort. Earlier , she had decided against any aggressive interventions such as intubation, mechanical ventilation. She has been made DNAR. OBJECTIVE: VITAL SIGNS: Normal temperature, blood pressure 105/53, pulse 114. She is saturating at 94% with 3 L nasal cannula. GENERAL: Appears chronic and acutely ill. She is kind of somewhat obtunded, but arousable. HEENT: Ocular movements are conjugate. LUNGS: With scattered inspiratory crackles, right and left side, particularly in dependent areas. HEART: S1 and S2. Tachycardia. ABDOMEN: Moderately distended. EXTREMITIES: She is able to move extremities, but she is diffusely weak. LABORATORY DATA: Sodium 132, creatinine 0.87, calcium 6.9. White cell count 0.4, hemoglobin 11, platelets 32,000. Blood cultures thus far negative and she is on cefepime and vancomycin. IMAGING STUDIES: Abdominal ultrasound showed small amount of free fluid within the right side of the abdomen. ASSESSMENT AND DISCUSSION: Stage III ovarian cancer, peritoneal carcinomatosis, hydronephrosis, chemo with neutropenic fever, hypotension. The patient is developing respiratory compromise, has not had a repeat chest x-ray, but the patient has opted for more conservative management strategy without any intubation option. I think she is being transferred to the oncology floor with palliative care perhaps. Job ID: [id number] MTDD
[2020-05-20 23:55] LABS: Actual Bicarbonate (HCO3a) 20.5 mEq/L (22-28); Base Excess (BEa) -8.4 mEq/L (-2.0 to +3.0); CO2 Tension 58.7 mmHg (35.0-45.0); Calcium, Ionized (arterial) 1.05 mmol/L (1.12-1.30); Carboxyhemoglobin (COHb) 0.6 gm% (0.0-3.0); Hemoglobin (Hb) 10.9 g/dL (12.0-16.0); O2 Tension (PaO2), arterial 64.2 mmHg (> 70.0); Potassium - ABG Lab 3.45 mmol/L (3.70-5.30)
[2020-05-21 00:21] LABS: Puncture Site RR; pH, Arterial 7.16 (7.35-7.45)
[2020-05-21] MEDS: Dextrose 5 % And 0.9 % NaCl 1,000 ML IV SCH ×2 (02:42→13:00)
[2020-05-21 04:16] LABS: ALT (SGPT) 20 U/L (8-55); AST (SGOT) 31 U/L (5-34); Albumin 3.3 g/dL (3.4-4.8); Alkaline Phosphatase 51 U/L (40-110); Anion Gap 14 mmol/L (10-20); BUN (Urea Nitrogen) 33 mg/dL (9.8-20.1); Bilirubin, Total 0.7 mg/dL (0.2-1.2); Calc. Creatinine Clearance 42 mL/min (70-130); Calcium 7.1 mg/dL (7.8-10.44); Carbon Dioxide 17 mmol/L (23-31); Chloride 105 mmol/L (98-107); Estimated GFR-MDRD 39; Globulin 2.1 g/dL (2.4-3.5); Glucose 132 mg/dL (83-110); Magnesium 2.2 mg/dL (1.6-2.6); Potassium 3.4 mmol/L (3.5-5.1); Protein, Total 5.4 g/dL (6.0-8.3); Sodium 133 mmol/L (136-145)
[2020-05-21 04:31] LABS: Platelet Count 15 thou/uL (130-400)
[2020-05-21 04:36] LABS: Band 6 % (5-11); Eosinophils 2 % (0-10); Hemoglobin 11.4 g/dL (12.0-16.0); Lymphocytes 24 % (21-51); MDiff Complete? YES; Mean Corpuscular HGB CONC 32.8 g/dL (32.0-36.0); Mean Corpuscular Hemoglobin 31.1 pg (27.0-31.0); Mean Corpuscular Volume 94.9 fL (78.0-98.0); Mean Platelet Volume 11.3 fL (7.4-10.4); Metamyelocyte 2 % (0-0); Monocytes 42 % (0-10); Neutrophil 24 % (42-75); Platelet Morphology Comment Appears Decreased; RBC Distribution Width 11.3 % (11.5-14.5); RBC Morphology Normal; Red Blood Cell (RBC) Count 3.67 mill/uL (4.20-5.40); White Blood Cell (WBC) Count 1.6 thou/uL (4.8-10.8)
[2020-05-21] MEDS: Cefepime 2 GM in Sodium Chloride 0.9% 100 ML IVPB SCH ×2 (05:31→18:00)
[2020-05-21] MEDS: Vancomycin HCl 25 MG/ML Oral PO SCH (09:00)
--- NOTE | 2020-05-21 09:49 | PDOC.HOSPP ---
- Subjective Encounter Date: 05/21/20 Encounter Time: 09:00 Subjective: overnight, respiratory distress, ABG showing acute type 2 failure, started on Bipap. This morning, on Bipap, appears in distress due to dyspnea. Abdomen more distended, REJI, and LE edema worse, suspecting abdominal compartment syndrome. Plt low so ordered platelets, started albumin pending US paracentesis. - Objective Vital Signs & Weight: Vital Signs (12 hours) Temp Pulse Resp Pulse Ox 05/21/20 04:00 97.6 F 05/21/20 01:00 97.8 F 05/21/20 00:27 112 H 28 H 94 L 05/21/20 00:00 93 L Weight Admit Weight 146 lb Weight 167 lb 5.294 oz Most Recent Monitor Data Heart Rate from ECG 112 NIBP 112/58 NIBP BP-Mean 76 Respiration from ECG 29 SpO2 93 I&O: 05/20/20 05/21/20 05/22/20 06:59 06:59 06:59 Intake Total 4926.4 4122.2 Output Total 908 1180 Balance 4018.4 2942.2 Result Diagrams: 05/21/20 03:36 05/21/20 03:36 Additional Labs: Accuchecks 05/20/20 05/20/20 05/20/20 21:03 16:04 11:09 POC Glucose 123 H 127 H 157 H Hospitalist ROS - Review of Systems ROS unobtainable: due to mental status (on bipap and can't converse) - Medication Medications: Active Medications Generic Name Dose Route Start Last Admin Trade Name Freq PRN Reason Stop Dose Admin Enoxaparin Sodium 40 mg 05/19/20 09:00 05/20/20 09:14 Lovenox SC Not Given 0900 MAYRA Cefepime HCl 2 gm/ Sodium 100 mls @ 200 mls/hr 05/19/20 06:00 05/21/20 05:31 Chloride IVPB 100 mls 0600,1800 MAYRA Administration Norepinephrine Bitartrate 250 mls @ 0 mls/hr 05/18/20 23:12 05/18/20 23:58 Levophed IVPB 250 mls PRN PRN Administration To maintain MAP > 65 Protocol Titrate Vancomycin HCl 1.5 gm/ Device 300 mls @ 200 mls/hr 05/20/20 11:00 05/20/20 10 :03 IVPB 300 mls 1100 MAYRA Administration Insulin Human Lispro 0 units 05/18/20 21:32 05/20/20 13:33 Humalog SC 2 unit .MILD SLIDING SCALE PRN Administration Mild Correctional Scale Loperamide HCl 2 mg 05/19/20 13:20 05/20/20 09:04 Imodium PO 2 mg Q2H PRN Administration Diarrhea/Loose Stools Ondansetron HCl 4 mg 05/18/20 20:43 05/19/20 17:42 Zofran IVP 4 mg Q6H PRN Administration Nausea/Vomiting Tbo-Filgrastim 480 mcg 05/19/20 09:00 05/20/20 09:18 Granix SC 480 mcg DAILY MAYRA Administration Vancomycin HCl 125 mg 05/20/20 09:00 05/20/20 09:17 First Vancomycin PO 125 mg DAILY MAYRA Administration - Exam General Appearance: awake alert General - other findings: in distress due to dyspnea, on Bipap FIO2 62 Eye: PERRL, anicteric sclera Respiratory: no wheezes, no ronchi, tachypneic Respiratory - other findings: shallow breathing, corase breath sounds Gastrointestinal - other findings: distended, worse than yesterday Extremities: 1+ LE edema Extremities - other findings: worse than yesterday Hosp A/P - Plan #acute hypoxic hypercapnic respiratory failure #REJI #worse lower extremity edema #Abdominal compartment syndrome stopped NS/D5; started albumin transfused platelets; urgent paracentesis updated , services caring for patient #neutropenic fever afebrile since admission per ID, likely source GI translocation; on vanc and cefepime; vanc oral for c. diff PPx; defer to ID #ovarian cancer #Ascites -overnight, hypercapnic failure requiring bipap -per palliative and onc, will revisit code status -urgent paracentesis DNAR ELOS 2-3 nights
--- NOTE | 2020-05-21 11:13 | ULT ---
Sonogram abdomen limited HISTORY: Ascites. FINDINGS: Exam was originally scheduled as a therapeutic paracentesis. Sonographic survey shows small amount of free fluid within the abdomen, not of sufficient volume for drainage. IMPRESSION : Only small amount of ascites. Therapeutic paracentesis not performed.
--- NOTE | 2020-05-21 11:14 | PDOC.PALPN ---
Palliative Progress Note - Subjective Placed on Bipap last night secondary to respiratory compromise, continues to have tachypnea, increase in abdominal distension. Weakness. Difficult to complete ROS secondary to elevated respiratory effort - Objective Vital Signs: Vital Signs - Most Recent Temp Pulse Resp BP Pulse Ox 97.6 F 112 H 28 H 70/46 L 94 L 05/21/20 04:00 05/21/20 00:27 05/21/20 00:27 05/18/20 19:44 05/21/20 00:27 - Physical Exam Constitutional: ill appearing, mild distress HEENT: EOMI, moist MMs, sclera anicteric Respiratory: accessory muscle use, labored respirations Cardiovascular: RRR Deviation from normal: intermittant tachycardia Deviation from normal: Distended, Genitourinary: barber catheter Musculoskeletal: edema present Neurology: moves all 4 limbs, no focal deficits Skin: cap refill <2 seconds Deviation from normal: Pallor Psychiatric: A&O x 3 - Assessment (1) Palliative care encounter Code(s): Z51.5 - ENCOUNTER FOR PALLIATIVE CARE Current Visit: Yes Status: Acute (2) Neutropenic fever Code(s): D70.9 - NEUTROPENIA, UNSPECIFIED; R50.81 - FEVER PRESENTING WITH CONDITIONS CLASSIFIED ELSEWHERE Current Visit: Yes Status: Acute (3) Ascites Code(s): R18.8 - OTHER ASCITES Current Visit: Yes Status: Acute (4) Ovarian cancer Current Visit: Yes Status: Acute - Plan Plan: Revisited DNAR status, revisited conversation with Dr Bustamante 05/20/2020. Confirmed transition to full resuscitation, with intubation if needed to recover current health crisis. Confirmed that if intubation and life sustaining measures were needed for lengthy period of time her desire to be an DNAR and transition to comfort would be honored. Daughter to bedside, also communicated with . Communicated with Dr Bustamante, Dr Rios [45] minutes spent on this encounter with >50% of the time in counseling and coordination of care. - ROS Constitutional: weakness Respiratory: shortness of breath
[2020-05-21 11:24] LABS: Vancomycin, Trough 19.8 ug/mL
[2020-05-21 12:14] LABS: INR-International Normal Ratio 1.5; Prothrombin Time 17.9 sec (12.0-14.7)
--- NOTE | 2020-05-21 12:23 | RAD ---
EXAM: CHEST ONE VIEW HISTORY: Respiratory distress. COMPARISON: 11/17/2015 FINDINGS: Cardiac silhouette is within normal limits. Pulmonary vasculature is borderline increased. Bibasilar pleural and parenchymal opacity are seen greater on the right likely related to bilateral pleural effusions and atelectasis. Superimposed pneumonia right lung base is a possibility. Vascular calcific ations are seen in the thoracic aorta. Gaseous distention of loops of bowel overlying the left upper quadrant are seen. There is osteopenia. IMPRESSION: Bibasilar pleural and parenchymal lung changes greater on the right which may represent bilateral ple ural effusions and atelectasis. Superimposed pneumonia at either lung base is a possibility. PA and lateral chest x-ray would be helpful for further evaluation.
[2020-05-21] MEDS: Albumin 25% 25 GM/100 ML BOT IVPB SCH ×4 (12:31→19:58)
[2020-05-21] MEDS: Vancomycin HCl 1.25 GM in Sodium Chloride 0.9% 250 ML 250 ML IVPB SCH (12:41)
[2020-05-21] MEDS ORDERED: Electrolyte Replacement Protoc 1 EACH EACH FS SCH (13:00)
[2020-05-21] MEDS ORDERED: Potassium Chloride 40 MEQ in Sodium Chloride 0.9% 250 ML 250 ML IVPB SCH (13:15)
[2020-05-21] MEDS ORDERED: Electrolyte Replacement Protocol FS PRN (13:15)
[2020-05-21] MEDS ORDERED: Midazolam HCl 2 mg/2 ml Vial SLOW IVP SCH (13:45)
[2020-05-21] MEDS ORDERED: Sodium Bicarb 50 MEQ/50 ML Abboject 8.4% SYRINGE ONE ×2 (14:18→15:16)
[2020-05-21] MEDS ORDERED: EPINEPHrine 1 MG/ML AMP ONE (14:18)
[2020-05-21 14:45] LABS: Actual Bicarbonate (HCO3a) 16.3 mEq/L (22-28); Base Excess (BEa) -11.3 mEq/L (-2.0 to +3.0); CO2 Tension 43.2 mmHg (35.0-45.0); Carboxyhemoglobin (COHb) 0.3 gm% (0.0-3.0); Hemoglobin (Hb) 10.5 g/dL (12.0-16.0); O2 Tension (PaO2), arterial 302.8 mmHg (> 70.0); Potassium - ABG Lab 3.17 mmol/L (3.70-5.30)
[2020-05-21 14:49] LABS: Puncture Site LRA; pH, Arterial 7.19 (7.35-7.45)
[2020-05-21] MEDS ORDERED: Lorazepam 2 MG/ML VIAL SLOW IVP PRN (15:02)
[2020-05-21] MEDS ORDERED: Propofol BOLUS 1,000 MG/100 ML VIAL IV PRN (15:02)
[2020-05-21] MEDS ORDERED: DISCONTINUE PREVIOUS NARCOTIC PAIN MEDICATIONS AND BENZODIAZEPINES FS SCH (15:02)
[2020-05-21] MEDS ORDERED: Morphine 2 MG/ML VIAL SLOW IVP PRN (15:02)
[2020-05-21] MEDS ORDERED: Fentanyl BOLUS 250 ML IVPB PRN (15:02)
[2020-05-21] MEDS ORDERED: Propofol 1,000 MG/100 ML VIAL IV PRN (15:02)
[2020-05-21] MEDS ORDERED: Vecuronium 10 MG VIAL ONE (15:10)
[2020-05-21] MEDS ORDERED: Sterile Water 10 ML ONE (15:11)
[2020-05-21] MEDS ORDERED: Vecuronium 10 MG VIAL IV SCH (15:15)
[2020-05-21] MEDS ORDERED: Digoxin 0.5 MG/2 ML AMP SLOW IVP SCH (15:15)
[2020-05-21 15:33] LABS: Actual Bicarbonate (HCO3a) 16.2 mEq/L (22-28); Base Excess (BEa) -8.9 mEq/L (-2.0 to +3.0); CO2 Tension 32.1 mmHg (35.0-45.0); Calcium, Ionized (arterial) 0.98 mmol/L (1.12-1.30); Carboxyhemoglobin (COHb) 0.1 gm% (0.0-3.0); Hemoglobin (Hb) 10.5 g/dL (12.0-16.0); Potassium - ABG Lab 2.86 mmol/L (3.70-5.30); pH, Arterial 7.32 (7.35-7.45)
[2020-05-21 15:47] LABS: O2 Tension (PaO2), arterial 54.6 mmHg (> 70.0); Puncture Site LRA
[2020-05-21 15:48] LABS: ALV-art Gradient 261.775 (0-20)
--- NOTE | 2020-05-21 15:57 | PDOC.MOPN ---
Interval History: intubated for respiratory failure. Per nurse, had emesis with possible aspiration. Now in Afib with RVR. - Vital Signs Vital Signs: Vital Signs (12 hours) Temp Pulse Resp Pulse Ox 05/21/20 14:52 180 H 05/21/20 11:40 110 H 27 H 94 L 05/21/20 04:00 97.6 F Weight Admit Weight 146 lb Weight 167 lb 5.294 oz Most Recent Monitor Data Heart Rate from ECG 112 NIBP 91/51 NIBP BP-Mean 64 Respiration from ECG 27 SpO2 99 - Physical Exam General: No acute distress Lungs: Other Cardiovascular: Other (afib with RVR) Abdomen: Other (distended) Neurological: Other (intubated, sedated) - Labs Result Diagrams: 05/21/20 03:36 05/21/20 03:36 Lab results: Laboratory Results - last 24 hr 05/21/20 15:17: Specimen Type ARTERIAL, Puncture Site LRA, Bicarbonate Actual 16.2 L, ABG pH 7.32 L, ABG pCO2 32.1 L, ABG pO2 54.6 L*, ABG O2 Sat (Measured) 90.6 L, ABG O2 Content 13.3 L, ABG Base Excess -8.9 L, ABG Hematocrit 31.0 L, ABG Hemoglobin 10.5 L, ABG Oxyhemoglobin 90.2 L, ABG Carboxyhemoglobin 0.1, ABG Methemoglobin 0.30, ABG Deoxyhemoglobin 9.4 H, Kvng Test POSITIVE, A-a O2 Gradient 261.775 H, Sodium 138, Potassium 2.86 L, Chloride 106, Ionized Calcium 0.98 L, Mode of Support SIMV-VC, Mechanical Rate 30, Inspired O2 50, Tidal Volume 450, Pressure Support 10, PEEP or CPAP 5.0 05/21/20 14:40: Specimen Type ARTERIAL, Puncture Site LRA, Bicarbonate Actual 16.3 L, ABG pH 7.19 L*, ABG pCO2 43.2, ABG pO2 302.8 H, ABG O2 Sat (Measured) 99.8 H, ABG O2 Content 15.4 L, ABG Base Excess -11.3 L, ABG Hematocrit 31.0 L, ABG Hemoglobin 10.5 L, ABG Oxyhemoglobin 99.2 H, ABG Carboxyhemoglobin 0.3, ABG Methemoglobin 0.30, ABG Deoxyhemoglobin 0.2, Kvng Test POSITIVE, A-a O2 Gradient 356.200 H, Sodium 135, Potassium 3.17 L, Chloride 107 H, Ionized Calcium 1.00 L, Mode of Support SIMV-VC, Mechanical Rate 20, Inspired O2 100, Tidal Volume 450, Pressure Support 10, PEEP or CPAP 5.0 05/21/20 12:29: POC Glucose 118 H 05/21/20 10:44: PT 17.9 H, INR 1.5, APTT 39.0 H 05/21/20 10:19: Blood Type A POSITIVE, Antibody Screen NEGATIVE 05/21/20 10:19: Vancomycin Trough 19.8 05/21/20 06:08: POC Glucose 137 H 05/21/20 03:36: WBC 1.6 L, RBC 3.67 L, Hgb 11.4 L, Hct 34.8 L, MCV 94.9, MCH 31.1 H, MCHC 32.8, RDW 11.3 L, Plt Count 15 L*, MPV 11.3 H, Neutrophils % ( Manual) 24 L, Band Neuts % (Manual) 6, Lymphocytes % (Manual) 24, Monocytes % ( Manual) 42 H, Eosinophils % (Manual) 2, Metamyelocytes % (Man) 2 H, Lymphocytes # Not Reportable, Plt Morphology Comment Appears Decreased L, RBC Morph Comment Normal 05/21/20 03:36: Sodium 133 L, Potassium 3.4 L, Chloride 105, Carbon Dioxide 17 L , Anion Gap 14, BUN 33 H, Creatinine 1.34 H, Estimated GFR (MDRD) 39, Glucose 132 H, Calcium 7.1 L, Magnesium 2.2, Total Bilirubin 0.7, AST 31, ALT 20, Alkaline Phosphatase 51, Serum Total Protein 5.4 L, Albumin 3.3 L, Globulin 2.1 L, Albumin/Globulin Ratio 1.6 05/21/20 03:35: Procalcitonin 18.62 05/20/20 23:51: Specimen Type ART, Puncture Site RR, Bicarbonate Actual 20.5 L, ABG pH 7.16 L*, ABG pCO2 58.7 H, ABG pO2 64.2, ABG O2 Sat (Measured) 91.4 L, ABG O2 Content 14.0 L, ABG Base Excess -8.4 L, ABG Hematocrit 32.0 L, ABG Hemoglobin 10.9 L, ABG Oxyhemoglobin 90.8 L, ABG Carboxyhemoglobin 0.6, ABG Methemoglobin 0.10, ABG Deoxyhemoglobin 8.5 H, Kvng Test POSITIVE, Sodium 133 L , Potassium 3.45 L, Chloride 103, Ionized Calcium 1.05 L, Mode of Support 4 LPM NC 05/20/20 21:03: POC Glucose 123 H 05/20/20 16:04: POC Glucose 127 H Status: lab reviewed by me A/P - Problem (1) Respiratory failure Current Visit: Yes Code(s): J96.90 - RESPIRATORY FAILURE, UNSP, UNSP W HYPOXIA OR HYPERCAPNIA Status: Acute (2) Ascites Current Visit: Yes Code(s): R18.8 - OTHER ASCITES Status: Acute (3) Neutropenic fever Current Visit: Yes Code(s): D70.9 - NEUTROPENIA, UNSPECIFIED; R50.81 - FEVER PRESENTING WITH CONDITIONS CLASSIFIED ELSEWHERE Status: Acute (4) Ovarian cancer Current Visit: Yes Status: Acute - Plan Plan: 1. Ventilatory support 2. On digoxin for Afib 3. Per U/S, not enough ascites to drain 4. continue granix 5. CBC in am
[2020-05-21] MEDS: fentaNYL Citrate/PF 2,000 MCG in Sodium Chloride 0.9% 60 ML IV SCH (16:22)
[2020-05-21] MEDS: Norepinephrine 8 MG/0.9% NS 250 ML IVPB PRN ×2 (16:31→23:52)
[2020-05-21] MEDS ORDERED: methylPREDNISolone Sod Succ/PF 125 MG/2 ML VIAL IVP SCH (18:15)
[2020-05-21] MEDS ORDERED: Amiodarone 150 MG, Admixture Fee 1 EACH in Dextrose 5% in Water 100 ML IVPB SCH (19:45)
[2020-05-21] MEDS: Amiodarone 450 MG, Admixture Fee 1 EACH in Dextrose 5% in Water 250 ML IVPB SCH (20:04)
[2020-05-21] MEDS: Vancomycin 1.5 GRAM/300 ML BAG 1.5 GM in Premix Bag 1 BAG IVPB SCH (20:13)
--- NOTE | 2020-05-21 23:20 | OP ---
DATE OF PROCEDURE: 05/21/2020 SUBJECTIVE: Ms. Whitlock apparently became hypoxemic overnight. Chest x-ray earlier today showed right upper lobe infiltrate as well as a small right effusion. She is on BiPAP. She appeared reasonably comfortable, although she is poorly responsive. I met with the daughter and again with the and reviewed all the problems. At this point in time, she still appears to be clinically septic. Her hemodynamics are stable, but she is requiring a low-dose Levophed. OBJECTIVE: Lungs are remarkable for coarse equal breath sounds. I believe she is starting to have trouble coughing up and handling secretions. Her abdomen is soft and protuberant, but an ultrasound today did show significant amount of ascites. LABORATORY DATA: White count 1.6, hemoglobin 11.4 platelets 15,000. She is to receive platelets today. Electrolytes are unremarkable. Creatinine is 1.3. Her urine output has been followed as the day is progressed. We elected to intubate her this afternoon. She is in a sitting position up with up with BiPAP on. This was removed. A bite block was placed, and the bronchoscope was introduced into her upper airway. The minute the bronchoscope was passed into the upper airway and I visualized her vocal cords, she vomited copious amounts of bile. The scope and the tube were advanced, hoping to get into the trachea. The endotracheal tube became a conduit for vomit, and all of the bile poured into the bed. Once this quit coming out of the endotracheal tube, the tube was removed. Her mouth was suctioned. Bronchoscope was reintroduced into her mouth and passed into her trachea, and the endotracheal tube was eventually secured above the main margo. She was Ambu bag ventilated. At that point in time, she had a weak pulse, so she was given epinephrine and bicarb, and then developed atrial fibrillation with moravian of a decent blood pressure. I believe, she received two total amps of epinephrine. During this period, she is now sedated and mechanically ventilated and chemically paralyzed. I have recommended a femoral line placement for pressors and IV fluid resuscitation. Femoral vein was easily cannulated in a sterile fashion after Betadine was used to clean the right groin, followed by chlorhexidine. Wire was easily passed through the vein. Dilator was easily passed after a small incision with a #11 blade. Triple-lumen catheter was sewn in place x2. Good blood return was obtained from all three ports. We only had 4-Afghan arterial catheters unfortunately. I was able to cannulate her femoral artery easily and pass a wire. I could not get a 4-Afghan catheter seat into her femoral artery, so this procedure was aborted. As I have explained to family, I feel that this rapid decline is a horrible sign. Requirement for intubation is predominantly secondary to muscle weakness and not secondary to lung compliance issues. She did have clinical bronchospasm after the procedure, but did not appear to have aspirated a large volume of bile. Her peak airway pressure was 39, but her plateau was only 23. PLAN: Nebulized treatments, steroids, mechanical ventilation will continue. She will be given albumin. With her declining renal function, I think her prognosis is extremely poor for survival. Family did agree to short-term ventilation only. Critical care time independent of procedure was 90 minutes. Critical care time 30 min. Job ID: [id number] MTDD
[2020-05-22] MEDS: Albumin 25% 25 GM/100 ML BOT IVPB SCH ×5 (00:59→23:28)
[2020-05-22] MEDS: Cefepime 2 GM in Sodium Chloride 0.9% 100 ML IVPB SCH ×2 (05:22→17:05)
[2020-05-22] MEDS: Amiodarone 450 MG, Admixture Fee 1 EACH in Dextrose 5% in Water 250 ML IVPB SCH ×2 (05:24→21:08)
[2020-05-22 05:52] LABS: Hemoglobin 9.5 g/dL (12.0-16.0); Mean Corpuscular HGB CONC 32.3 g/dL (32.0-36.0); Mean Corpuscular Volume 92.9 fL (78.0-98.0); Mean Platelet Volume 12.6 fL (7.4-10.4); Platelet Count 15 thou/uL (130-400); RBC Distribution Width 11.4 % (11.5-14.5); Red Blood Cell (RBC) Count 3.17 mill/uL (4.20-5.40); White Blood Cell (WBC) Count 5.8 thou/uL (4.8-10.8)
[2020-05-22 06:21] LABS: ALT (SGPT) 13 U/L (8-55); AST (SGOT) 24 U/L (5-34); Albumin 3.3 g/dL (3.4-4.8); Alkaline Phosphatase 62 U/L (40-110); Anion Gap 18 mmol/L (10-20); BUN (Urea Nitrogen) 39 mg/dL (9.8-20.1); Bilirubin, Total 0.8 mg/dL (0.2-1.2); Calc. Creatinine Clearance 30 mL/min (70-130); Carbon Dioxide 14 mmol/L (23-31); Chloride 108 mmol/L (98-107); Estimated GFR-MDRD 24; Globulin 1.8 g/dL (2.4-3.5); Glucose 169 mg/dL (83-110); Magnesium 2.1 mg/dL (1.6-2.6); Protein, Total 5.1 g/dL (6.0-8.3); Sodium 137 mmol/L (136-145)
[2020-05-22 06:26] LABS: Band 14 % (5-11); Lymphocytes 14 % (21-51); MDiff Complete? YES; Monocytes 9 % (0-10); Neutrophil 63 % (42-75); Platelet Morphology Comment Appears Decreased; RBC Morphology Normal
[2020-05-22] MEDS ORDERED: Potassium Chloride 40 MEQ in Sodium Chloride 0.9% 250 ML 250 ML IVPB SCH (07:15)
--- NOTE | 2020-05-22 07:40 | CT ---
PRELIMINARY REPORT/[facility]/EMERGENCY AFTER HOURS PROCEDURE: EXAM: CT Head Without Intravenous Contrast. CLINICAL HISTORY: R/O BLEED. RESPIRATORY DISTRESS YESTERDAY. PT IS A OVARIAN CA PT. TECHNIQUE: Axial computed tomography images of the head/brain without intravenous contrast. COMPARISON: None provided. FINDINGS: BRAIN: No acute intraparenchymal hemorrhage. No mass lesion. No CT evidence for acute territorial inf arct. No midline shift or extra-axial collection. Bilateral basal ganglia hyperdensities, likely senescent calcifications. VENTRICLES: No hydrocephalus. ORBITS: The orbits are unremarkable. SINUSES AND MASTOIDS: The paranasal sinuses and mastoid air cells are clear. SOFT TISSUES: No significant facial or scalp soft tissue swelling evident. No radiopaque foreign body is seen. BONES: No acute skull fracture. IMPRESSION: No acute intracranial abnormality. Bilateral basal ganglia hyperdensities, likely senesce nt calcifications. ELECTRONICALLY SIGNED BY: Ricky Arthur MD May 22, 2020 4:31:44 AM CDT FINAL REPORT CT BRAIN WITHOUT CONTRAST: I agree with the report given by Dr. Ricky Arthur of [facility]. Transcribed Date/Time: 05/22/2020 7:57 AM
[2020-05-22 07:44] LABS: Actual Bicarbonate (HCO3a) 10.8 mEq/L (22-28); Base Excess (BEa) -11.4 mEq/L (-2.0 to +3.0); Calcium, Ionized (arterial) 1.01 mmol/L (1.12-1.30); Carboxyhemoglobin (COHb) 0.3 gm% (0.0-3.0); Hemoglobin (Hb) 10.1 g/dL (12.0-16.0); O2 Tension (PaO2), arterial 102.7 mmHg (> 70.0); Potassium - ABG Lab 3.23 mmol/L (3.70-5.30); pH, Arterial 7.43 (7.35-7.45)
[2020-05-22] MEDS: methylPREDNISolone Sod Succ/PF 125 MG/2 ML VIAL IVP SCH (08:29)
[2020-05-22] MEDS: Norepinephrine 8 MG/0.9% NS 250 ML IVPB PRN ×3 (08:30→23:49)
[2020-05-22] MEDS: Dextrose 5 % And 0.9 % NaCl 1,000 ML IV SCH (09:47)
[2020-05-22] MEDS: Vancomycin HCl 25 MG/ML Oral PO SCH (09:47)
[2020-05-22 10:11] LABS: CO2 Tension 16.6 mmHg (35.0-45.0); Puncture Site LRA
[2020-05-22 10:43] VITALS: BMI 29.9
[2020-05-22] MEDS: HumaLOG 300 UNITS/3 ML VIAL SC PRN ×3 (12:19→23:34)
[2020-05-22] MEDS: Vancomycin HCl 1.25 GM in Sodium Chloride 0.9% 250 ML 250 ML IVPB SCH (13:11)
--- NOTE | 2020-05-22 14:16 | PDOC.MOPN ---
Interval History: intubated/sedated. HR improved - Vital Signs Vital Signs: Vital Signs (12 hours) Temp Pulse Pulse Resp BP Pulse Ox 05/22/20 12:00 99.3 F 29 H 05/22/20 11:52 99.7 F H 140 H 24 H 98 05/22/20 11:15 98.6 F 137 H 25 H 96 05/22/20 11:00 98.6 F 05/22/20 10:54 100.3 F H 30 H 97 05/22/20 10:36 139 H 124/71 05/22/20 10:35 137 H 25 H 98 05/22/20 10:00 30 H 05/22/20 08:00 30 H 05/22/20 07:48 98 05/22/20 07:33 137 H 137/74 05/22/20 07:31 128 H 30 H 99 05/22/20 07:00 98.3 F 05/22/20 06:00 30 H 05/22/20 04:00 98.4 F 30 H Weight Admit Weight 146 lb 9.718 oz Weight 168 lb 13.985 oz Most Recent Monitor Data Heart Rate from ECG 132 NIBP 97/56 NIBP BP-Mean 69 Respiration from ECG 26 SpO2 98 - Physical Exam General: No acute distress Lungs: Other Cardiovascular: Other (tachy) Abdomen: Other (distended) Neurological: Other (sedated) - Labs Result Diagrams: 05/22/20 05:30 05/22/20 05:30 Lab results: Laboratory Results - last 24 hr 05/22/20 12:12: POC Glucose 201 H 05/22/20 07:39: Specimen Type ARTERIAL, Puncture Site LRA, Bicarbonate Actual 10.8 L, ABG pH 7.43, ABG pCO2 16.6 L*, ABG pO2 102.7 H, ABG O2 Sat (Measured) 98.2 H, ABG O2 Content 14.0 L, ABG Base Excess -11.4 L, ABG Hematocrit 30.0 L, ABG Hemoglobin 10.1 L, ABG Oxyhemoglobin 97.6, ABG Carboxyhemoglobin 0.3, ABG Methemoglobin 0.30, ABG Deoxyhemoglobin 1.8, Kvng Test POSITIVE, A-a O2 Gradient 233.050 H, Sodium 136, Potassium 3.23 L, Chloride 107 H, Ionized Calcium 1.01 L, Mode of Support SIMV.PSV, Mechanical Rate 30, Inspired O2 50, Tidal Volume 450, Pressure Support 10, PEEP or CPAP 10.0 05/22/20 05:30: WBC 5.8, RBC 3.17 L, Hgb 9.5 L, Hct 29.5 L, MCV 92.9, MCH 30.0, MCHC 32.3, RDW 11.4 L, Plt Count 15 L*, MPV 12.6 H, Neutrophils % (Manual) 63, Band Neuts % (Manual) 14 H, Lymphocytes % (Manual) 14 L, Monocytes % (Manual) 9 , Lymphocytes # Not Reportable, Plt Morphology Comment Appears Decreased L, RBC Morph Comment Normal 05/22/20 05:30: Sodium 137, Potassium 3.0 L, Chloride 108 H, Carbon Dioxide 14 L , Anion Gap 18, BUN 39 H, Creatinine 2.04 H, Estimated GFR (MDRD) 24, Glucose 169 H, Calcium 7.0 L, Magnesium 2.1, Total Bilirubin 0.8, AST 24, ALT 13, Alkaline Phosphatase 62, Serum Total Protein 5.1 L, Albumin 3.3 L, Globulin 1.8 L, Albumin/Globulin Ratio 1.8 05/21/20 23:17: POC Glucose 119 H 05/21/20 15:17: Specimen Type ARTERIAL, Puncture Site LRA, Bicarbonate Actual 16.2 L, ABG pH 7.32 L, ABG pCO2 32.1 L, ABG pO2 54.6 L*, ABG O2 Sat (Measured) 90.6 L, ABG O2 Content 13.3 L, ABG Base Excess -8.9 L, ABG Hematocrit 31.0 L, ABG Hemoglobin 10.5 L, ABG Oxyhemoglobin 90.2 L, ABG Carboxyhemoglobin 0.1, ABG Methemoglobin 0.30, ABG Deoxyhemoglobin 9.4 H, Kvng Test POSITIVE, A-a O2 Gradient 261.775 H, Sodium 138, Potassium 2.86 L, Chloride 106, Ionized Calcium 0.98 L, Mode of Support SIMV-VC, Mechanical Rate 30, Inspired O2 50, Tidal Volume 450, Pressure Support 10, PEEP or CPAP 5.0 05/21/20 14:40: Specimen Type ARTERIAL, Puncture Site LRA, Bicarbonate Actual 16.3 L, ABG pH 7.19 L*, ABG pCO2 43.2, ABG pO2 302.8 H, ABG O2 Sat (Measured) 99.8 H, ABG O2 Content 15.4 L, ABG Base Excess -11.3 L, ABG Hematocrit 31.0 L, ABG Hemoglobin 10.5 L, ABG Oxyhemoglobin 99.2 H, ABG Carboxyhemoglobin 0.3, ABG Methemoglobin 0.30, ABG Deoxyhemoglobin 0.2, Kvng Test POSITIVE, A-a O2 Gradient 356.200 H, Sodium 135, Potassium 3.17 L, Chloride 107 H, Ionized Calcium 1.00 L, Mode of Support SIMV-VC, Mechanical Rate 20, Inspired O2 100, Tidal Volume 450, Pressure Support 10, PEEP or CPAP 5.0 05/21/20 10:19: Blood Type A POSITIVE, Antibody Screen NEGATIVE Status: lab reviewed by me A/P - Problem (1) Respiratory failure Current Visit: Yes Code(s): J96.90 - RESPIRATORY FAILURE, UNSP, UNSP W HYPOXIA OR HYPERCAPNIA Status: Acute (2) Ascites Current Visit: Yes Code(s): R18.8 - OTHER ASCITES Status: Acute (3) Neutropenic fever Current Visit: Yes Code(s): D70.9 - NEUTROPENIA, UNSPECIFIED; R50.81 - FEVER PRESENTING WITH CONDITIONS CLASSIFIED ELSEWHERE Status: Acute (4) Ovarian cancer Current Visit: Yes Status: Acute - Plan Plan: 1. platelet transfusion today 2. supportive care
--- NOTE | 2020-05-22 14:31 | PRG ---
DATE OF SERVICE: 05/22/2020 SUBJECTIVE: Mago Whitlock is looking around the room, making an eye contact with her daughter. OBJECTIVE: VITAL SIGNS: Blood pressure is 110/59, heart rate is 130. She is on amiodarone. She is in atrial fibrillation. Respiratory rates in the 20s. LUNGS: Remarkable for coarse and equal breath sounds. HEART: Regular rhythm. ABDOMEN: Soft. EXTREMITIES: Without edema. LABORATORY DATA: CT showed no bleed. I was concerned because of her thrombocytopenia and some change in her mental status yesterday. LABORATORY DATA: White count 5.8, hemoglobin 9.5, and platelets 15,000. Electrolytes are unchanged. BUN 39, creatinine 2.04. She is anuric now. PH 7.3, pCO2 16, PO2 102. IMPRESSION: 1. Respiratory failure. 2. Severe metabolic acidosis, compensated with mechanical ventilation secondary to renal failure. 3. Acute renal failure. 4. Pancytopenia secondary to chemotherapy. 5. Clinical sepsis with negative cultures. 6. Extreme deconditioning. 7. Peritoneal carcinomatosis. I cannot see any way that she will survive this much less become a candidate for further therapy. I met with the daughter and answered all of her questions. She remains anuric. She needs to be a DNR and consideration toward comfort care on Sunday should be given. Critical care time 30 min. Job ID: [id number] MTDD
[2020-05-22 16:01] LABS: Potassium 3.2 mmol/L (3.5-5.1)
--- NOTE | 2020-05-22 16:54 | PRG ---
DATE OF SERVICE: 05/22/2020 SUBJECTIVE: The patient is intubated. She is on pressors. She has been sedated right now. OBJECTIVE: VITAL SIGNS: T-max 99.7 to 100.3, BP 90/59. GENERAL: Oral tracheal intubation and Parks catheter, output 115 yesterday, and 110 mL thus far today. HEENT: Pupils are about 2 mm and somewhat reactive. Sclerae white. She does not establish eye contact. LUNGS: Symmetric air entry. Some coarse breath sounds. HEART: S1 and S2. Regular rate. ABDOMEN: Somewhat distended. Could not test motion in the appendicular structures. LABORATORY DATA: White cell count is up to 5.8, hemoglobin 9.5, platelets 15, 63% neutrophils, and 14% bands. Potassium 3.2, creatinine is up to 2.04, and albumin 3.3. Blood cultures, no growth. Brain CT from 05/22 with no abnormalities. DISCUSSION: Medical Oncology note has been reviewed. Dr. Dubon's note has been reviewed. Again, low likelihood of survival in this situation. Job ID: [id number]
--- NOTE | 2020-05-22 16:54 | PDOC.HOSPP ---
- Subjective Encounter Date: 05/22/20 Encounter Time: 16:00 Subjective: pt intubated - Objective Vital Signs & Weight: Vital Signs (12 hours) Temp Pulse Pulse Resp BP Pulse Ox 05/22/20 16:00 25 H 05/22/20 15:00 98.9 F 05/22/20 14:45 126 H 87/56 L 05/22/20 14:43 131 H 25 H 98 05/22/20 14:00 25 H 05/22/20 12:00 99.3 F 29 H 05/22/20 11:52 99.7 F H 140 H 24 H 98 05/22/20 11:15 98.6 F 137 H 25 H 96 05/22/20 11:00 98.6 F 05/22/20 10:54 100.3 F H 30 H 97 05/22/20 10:36 139 H 124/71 05/22/20 10:35 137 H 25 H 98 05/22/20 10:00 30 H 05/22/20 08:00 30 H 05/22/20 07:48 98 05/22/20 07:33 137 H 137/74 05/22/20 07:31 128 H 30 H 99 05/22/20 07:00 98.3 F 05/22/20 06:00 30 H Weight Admit Weight 146 lb 9.718 oz Weight 168 lb 13.985 oz Most Recent Monitor Data Heart Rate from ECG 128 NIBP 90/59 NIBP BP-Mean 69 Respiration from ECG 25 SpO2 97 I&O: 05/21/20 05/22/20 05/23/20 06:59 06:59 06:59 Intake Total 4122.2 4273.3 860 Output Total 1180 1815 10 Balance 2942.2 2458.3 850 Result Diagrams: 05/22/20 05:30 05/22/20 15:20 Additional Labs: Accuchecks 05/22/20 05/22/20 05/21/20 15:25 12:12 23:17 POC Glucose 193 H 201 H 119 H Hospitalist ROS - Review of Systems Other: pt intubated - Medication Medications: Active Medications Generic Name Dose Route Start Last Admin Trade Name Freq PRN Reason Stop Dose Admin Albumin Human 25 gm 05/21/20 18:30 05/22/20 12:18 Albumin 25% IVPB 05/23/20 18:31 25 gm Q6H MAYRA Administration Albuterol/Ipratropium 3 ml 05/21/20 18:30 05/22/20 14:43 Duoneb NEB 3 ml [id number] MAYRA Administration Enoxaparin Sodium 40 mg 05/19/20 09:00 05/20/20 09:14 Lovenox SC Not Given 0900 MAYRA Cefepime HCl 2 gm/ Sodium 100 mls @ 200 mls/hr 05/19/20 06:00 05/22/20 05:22 Chloride IVPB 100 mls 0600,1800 MAYRA Administration Norepinephrine Bitartrate 250 mls @ 0 mls/hr 05/18/20 23:12 05/22/20 08:30 Levophed IVPB 250 mls PRN PRN Administration To maintain MAP > 65 Protocol Titrate Vancomycin HCl 1.25 gm/ Sodium 250 mls @ 166.667 mls/hr 05/21/20 12:00 13:11 Chloride IVPB 250 mls 1200 MAYRA Administration Dextrose/Sodium Chloride 1,000 mls @ 50 mls/hr 05/21/20 13:00 05/22/20 09:47 D5 0.9% Ns IV 1,000 mls .Q20H MAYRA Administration Fentanyl Citrate 2,000 mcg/ 100 mls @ 0 mls/hr 05/21/20 15:02 05/21/20 16:22 Sodium Chloride IV 06/20/20 15:02 100 mls INF MAYRA Administration Protocol Per Protocol Amiodarone HCl 450 mg/ 259 mls @ 0 mls/hr 05/21/20 19:45 05/22/20 05:24 Miscellaneous Medication 1 IVPB 259 mls each/ Dextrose/Water INF MAYRA Administration Protocol As Directed Insulin Human Lispro 0 units 05/18/20 21:32 05/22/20 15:23 Humalog SC 2 unit .MILD SLIDING SCALE PRN Administration Mild Correctional Scale Loperamide HCl 2 mg 05/19/20 13:20 05/20/20 09:04 Imodium PO 2 mg Q2H PRN Administration Diarrhea/Loose Stools Methylprednisolone Sodium Succinate 80 mg 05/22/20 09:00 05/22/20 08:29 Solu-Medrol IVP 80 mg DAILY MAYRA Administration Ondansetron HCl 4 mg 05/18/20 20:43 05/19/20 17:42 Zofran IVP 4 mg Q6H PRN Administration Nausea/Vomiting Tbo-Filgrastim 480 mcg 05/19/20 09:00 05/22/20 10:12 Granix SC 480 mcg DAILY MAYRA Administration Vancomycin HCl 125 mg 05/20/20 09:00 05/22/20 09:47 First Vancomycin PO 125 mg DAILY MAYRA Administration - Exam Neck: negative: supple, symmetric, no JVD, no thyromegaly, no lymphadenopathy, no carotid bruit, JVD Heart: negative: RRR, no murmur, no gallops, no rubs, normal peripheral pulses, irregular, diminshed peripheral pulses, murmur present, II/IV, III/IV Respiratory: negative: CTAB, no wheezes, no rales, no ronchi, normal chest expansion, no tachypnea, normal percussion, rales, rhonchi, tachypneic, wheezes Gastrointestinal: negative: soft, non-tender, non-distended, normal bowel sounds , no palpable masses, no hepatomegaly, no splenomegaly, no bruit, no guarding, no rigidity, tender to palpation, distended, diminished bowl sounds, voluntary guarding Hosp A/P (1) Acute respiratory failure with hypoxia and hypercapnia Code(s): J96.01 - ACUTE RESPIRATORY FAILURE WITH HYPOXIA; J96.02 - ACUTE RESPIRATORY FAILURE WITH HYPERCAPNIA Status: Acute (2) REJI (acute kidney injury) Code(s): N17.9 - ACUTE KIDNEY FAILURE, UNSPECIFIED Status: Acute (3) Metabolic acidosis Code(s): E87.2 - ACIDOSIS Status: Acute (4) C. difficile diarrhea Code(s): A04.72 - ENTEROCOLITIS D/T CLOSTRIDIUM DIFFICILE, NOT SPCF RECUR Status: Acute (5) Neutropenia Code(s): D70.9 - NEUTROPENIA, UNSPECIFIED Status: Acute (6) Ovarian cancer Status: Acute (7) Atrial fibrillation Code(s): I48.91 - UNSPECIFIED ATRIAL FIBRILLATION Status: Acute - Plan pt on amiodarone drip and still not controlled. Her blood pressure is marginal. will give one dose of digoxin and see if it helps. She received one yest. pt was given platelets. Abx continued for now. Pt has no urine output will give her bicarb with 1/2ns. She is not having diarrhea but has significant acidosis. Abd ultrasound minimal ascites no paracentesis was done. pt's is cdiff antigen positive not toxin. She continues to be on levophed with minimal response. She is also getting albumin. She is on steroids also. Overall prognosis is poor. Pt not a candidate for AC due to low platelets.
[2020-05-22] MEDS ORDERED: Digoxin 0.5 MG/2 ML AMP SLOW IVP SCH (17:00)
[2020-05-22] MEDS: Sodium Bicarbonate 75 MEQ in Sodium Chloride 0.45% 1,000 ML IV SCH (17:43)
[2020-05-22] MEDS: Sodium Bicarbonate Tab 325 MG TAB PO SCH (20:05)
[2020-05-23] MEDS: Cefepime 2 GM in Sodium Chloride 0.9% 100 ML IVPB SCH (05:00)
[2020-05-23] MEDS: Albumin 25% 25 GM/100 ML BOT IVPB SCH ×2 (05:01→12:00)
[2020-05-23] MEDS: fentaNYL Citrate/PF 2,000 MCG in Sodium Chloride 0.9% 60 ML IV SCH (05:21)
[2020-05-23 05:30] LABS: Platelet Count 17 thou/uL (130-400)
[2020-05-23 05:33] LABS: Fibrinogen 579 mg/dL (253-463)
[2020-05-23 05:34] LABS: INR-International Normal Ratio 2.4; PTT 43.3 sec (22.9-36.1); Prothrombin Time 26.2 sec (12.0-14.7)
[2020-05-23 05:46] LABS: Digoxin 0.92 ng/mL (0.8-2.0)
[2020-05-23 05:52] LABS: D-Dimer Test 3.68 *mcg/mL (0.27-0.43)
[2020-05-23 05:54] LABS: FSP-Qualitative ABNORMAL (Normal); Phosphorus 1.1 mg/dL (2.3-4.7)
[2020-05-23 05:55] LABS: FSP-Semiquantitative >=5 & <20 mcg/mL (Less than 5)
[2020-05-23 06:08] LABS: Anion Gap 17 mmol/L (10-20); BUN (Urea Nitrogen) 51 mg/dL (9.8-20.1); Calc. Creatinine Clearance 25 mL/min (70-130); Calcium 7.3 mg/dL (7.8-10.44); Carbon Dioxide 14 mmol/L (23-31); Chloride 110 mmol/L (98-107); Estimated GFR-MDRD 19; Glucose 172 mg/dL (83-110); Potassium 3.4 mmol/L (3.5-5.1); Sodium 138 mmol/L (136-145)
[2020-05-23] MEDS: HumaLOG 300 UNITS/3 ML VIAL SC PRN ×4 (06:12→22:32)
[2020-05-23] MEDS ORDERED: Electrolyte Replacement Protocol FS PRN (06:42)
[2020-05-23] MEDS: Sodium Bicarbonate 75 MEQ in Sodium Chloride 0.45% 1,000 ML IV SCH ×2 (06:42→20:19)
[2020-05-23 06:52] LABS: Actual Bicarbonate (HCO3a) 11.6 mEq/L (22-28); Base Excess (BEa) -12.5 mEq/L (-2.0 to +3.0); Calcium, Ionized (arterial) 1.05 mmol/L (1.12-1.30); Carboxyhemoglobin (COHb) 0.3 gm% (0.0-3.0); Hemoglobin (Hb) 10.4 g/dL (12.0-16.0); O2 Tension (PaO2), arterial 86.6 mmHg (> 70.0); Potassium - ABG Lab 3.17 mmol/L (3.70-5.30); pH, Arterial 7.34 (7.35-7.45)
[2020-05-23 06:53] LABS: CO2 Tension 22.2 mmHg (35.0-45.0); Puncture Site LRA
[2020-05-23] MEDS: Enoxaparin Sodium 40 MG/0.4 ML SYRINGE SC SCH (08:56)
[2020-05-23] MEDS: methylPREDNISolone Sod Succ/PF 125 MG/2 ML VIAL IVP SCH (08:57)
[2020-05-23] MEDS: Vancomycin HCl 25 MG/ML Oral PO SCH (08:58)
[2020-05-23] MEDS: Sodium Bicarbonate Tab 325 MG TAB PO SCH ×3 (08:58→20:20)
[2020-05-23 09:01] LABS: Hemoglobin 8.8 g/dL (12.0-16.0); Mean Corpuscular HGB CONC 31.9 g/dL (32.0-36.0); Mean Corpuscular Hemoglobin 29.7 pg (27.0-31.0); RBC Distribution Width 11.6 % (11.5-14.5); Red Blood Cell (RBC) Count 2.97 mill/uL (4.20-5.40)
[2020-05-23 09:44] LABS: Band 22 % (5-11); Lymphocytes 5 % (21-51); MDiff Complete? YES; Metamyelocyte 3 % (0-0); Monocytes 17 % (0-10); Myelocyte 2 % (0-0); Neutrophil 51 % (42-75); Platelet Count 15 thou/uL (130-400); Platelet Morphology Comment Appears Decreased; White Blood Cell (WBC) Count 21.5 thou/uL (4.8-10.8)
--- NOTE | 2020-05-23 10:45 | PRG ---
DATE OF SERVICE: 05/23/2020 SUBJECTIVE: Mago Whitlock awakens. OBJECTIVE: VITAL SIGNS: Respiratory rates in the 20s, FiO2 is at 40, blood pressure is 97/57, heart rate is 125. LUNGS: Clear. HEART: Regular rhythm. She is in atrial fibrillation. ABDOMEN: Soft. LABORATORY DATA: White count 21.5, hemoglobin 8.8, platelets 15,000. Sodium , potassium 3.4, chloride 110, bicarb 14, BUN 51, creatinine 2.52. PH 7.34, CO2 of 22, PO2 of 86. IMPRESSION: 1. Acute renal failure on top of clinical sepsis associated with pancytopenia secondary to chemo. 2. Peritoneal carcinomatosis. I talked to the by phone. He wants her to be a do not resuscitate patient as this was in accordance with her pre-existing wishes. Plan is at this time to continue support for the next couple of days, probably we will consider extubation on Sunday for comfort care. I feel there is no chance that she can survive, given that she has developed anuric renal failure. Her pneumonia is not causing significant gas exchange problems. The C difficile toxin was not isolated so I do not feel that is a big component of this illness. We will continue to follow. Critical care time 30 min. Job ID: [id number] MTDD
[2020-05-23 11:29] LABS: Vancomycin, Trough 41.9 ug/mL
[2020-05-23] MEDS: Vancomycin HCl 1.25 GM in Sodium Chloride 0.9% 250 ML 250 ML IVPB SCH (11:44)
[2020-05-23] MEDS: Amiodarone 450 MG, Admixture Fee 1 EACH in Dextrose 5% in Water 250 ML IVPB SCH (13:05)
--- NOTE | 2020-05-23 14:19 | PDOC.MOPN ---
Interval History: sedated/intubated. - Vital Signs Vital Signs: Vital Signs (12 hours) Temp Pulse Resp BP Pulse Ox 05/23/20 12:00 97.7 F 25 H 05/23/20 10:42 127 H 93/58 L 05/23/20 10:41 118 H 25 H 95 05/23/20 10:00 25 H 05/23/20 08:00 98.2 F 25 H 98 05/23/20 06:44 130 H 135/84 05/23/20 06:42 124 H 25 H 97 05/23/20 06:00 25 H 05/23/20 04:00 25 H 05/23/20 03:00 98 F Weight Admit Weight 146 lb 9.718 oz Weight 172 lb 6.424 oz Most Recent Monitor Data Heart Rate from ECG 90 NIBP 108/55 NIBP BP-Mean 72 Respiration from ECG 28 SpO2 98 - Physical Exam General: No acute distress HEENT: Atraumatic, PERRLA, EOMI, Mucous membr. moist/pink Lungs: Other (crackles) Cardiovascular: Regular rate Extremities: Other (edema all extremities) Psych/Mental Status: Other - Labs Result Diagrams: 05/23/20 05:05 05/23/20 05:05 Lab results: Laboratory Results - last 24 hr 05/23/20 10:45: Vancomycin Trough 41.9 H* 05/23/20 10:42: POC Glucose 173 H 05/23/20 06:40: Specimen Type ARTERIAL, Puncture Site LRA, Bicarbonate Actual 11.6 L, ABG pH 7.34 L, ABG pCO2 22.2 L*, ABG pO2 86.6 H, ABG O2 Sat (Measured) 96.5, ABG O2 Content 14.1 L, ABG Base Excess -12.5 L, ABG Hematocrit 31.0 L, ABG Hemoglobin 10.4 L, ABG Oxyhemoglobin 96.0, ABG Carboxyhemoglobin 0.3, ABG Methemoglobin 0.20, ABG Deoxyhemoglobin 3.5 H, Kvng Test POSITIVE, A-a O2 Gradient 170.850 H, Ionized Calcium 1.05 L, Mode of Support SIMV.PSV, Mechanical Rate 25, Inspired O2 40, Tidal Volume 450, Pressure Support 10, PEEP or CPAP 10.0, Sodium 136, Potassium 3.17 L, Chloride 108 H 05/23/20 05:05: WBC 21.5 H, RBC 2.97 L, Hgb 8.8 L, Hct 27.6 L, MCV 93.0, MCH 29.7, MCHC 31.9 L, RDW 11.6, Plt Count 15 L*, MPV 11.0 H, Neutrophils % (Manual ) 51, Band Neuts % (Manual) 22 H, Lymphocytes % (Manual) 5 L, Monocytes % ( Manual) 17 H, Metamyelocytes % (Man) 3 H, Myelocytes % 2 H, Lymphocytes # Not Reportable, Plt Morphology Comment Appears Decreased L 05/23/20 05:05: Sodium 138, Potassium 3.4 L, Chloride 110 H, Carbon Dioxide 14 L , Anion Gap 17, BUN 51 H, Creatinine 2.52 H, Estimated GFR (MDRD) 19, Glucose 172 H, Calcium 7.3 L 05/23/20 05:05: Digoxin 0.92 05/23/20 05:05: Phosphorus 1.1 L 05/23/20 05:05: Plt Count 17 L*, PT 26.2 H, INR 2.4, APTT 43.3 H, Fibrinogen 579 H, Fibrin Degrad Products ABNORMAL H, Fibrin Degrad Prod, Qt >=5 & <20 H, D- Dimer 3.68 H 05/22/20 23:37: POC Glucose 184 H 05/22/20 15:25: POC Glucose 193 H 05/22/20 15:20: Potassium 3.2 L Status: lab reviewed by me A/P - Problem (1) Respiratory failure Current Visit: Yes Code(s): J96.90 - RESPIRATORY FAILURE, UNSP, UNSP W HYPOXIA OR HYPERCAPNIA Status: Acute (2) Ascites Current Visit: Yes Code(s): R18.8 - OTHER ASCITES Status: Acute (3) Neutropenic fever Current Visit: Yes Code(s): D70.9 - NEUTROPENIA, UNSPECIFIED; R50.81 - FEVER PRESENTING WITH CONDITIONS CLASSIFIED ELSEWHERE Status: Acute (4) Ovarian cancer Current Visit: Yes Status: Acute - Plan Plan: HR controlled with amiodarone gtt remains on Levophed for pressure support On vent, FiO2 40% NGT in place, monitor supportive care
--- NOTE | 2020-05-23 15:52 | CON ---
DATE OF CONSULTATION: 05/23/2020 CONSULTING PHYSICIAN: Dr. Quintanilla REASON FOR CONSULTATION: Acute kidney injury, acidosis. REASON FOR ADMISSION: Neutropenic fever. HISTORY OF PRESENT ILLNESS: This is a 75-year-old female with history of ovarian cancer, ascites, GERD, diabetes, came to the hospital with above complaints. The patient is in the hospital for few days. The patient had a creatinine of 0.76 on admission and now it is 2.5. She is not making much urine. She remains in ICU and intubated. She is DNR. Nephrology consulted for acute kidney injury. Apparently, her prognosis seems to be very poor per the other consultants. PAST MEDICAL HISTORY: Positive for; 1. Stage III ovarian cancer. 2. GERD. 3. Diabetes mellitus. PAST SURGICAL HISTORY: Partial hysterectomy, vaginal prolapse repair, right shoulder surgery. HOME MEDICATIONS: Reviewed. ALLERGIES: FLUOROURACIL. SOCIAL HISTORY: She is a former smoker. No alcohol or illicit drug abuse. FAMILY HISTORY: Positive for alcoholism. REVIEW OF SYSTEMS: Could not be obtained as she is intubated and sedated. PHYSICAL EXAMINATION: GENERAL: Reveals an elderly female, seen in ICU, intubated. VITAL SIGNS: Temperature 97.7, pulse is 90, respiratory rate 25 to 28, blood pressure 108/55. HEENT: Intubated. RESPIRATORY: Clear. CV: S1 and S2 heard irregular. GI. Abdomen is soft, distended MUSCULOSKELETAL: 1+ edema. DERMATOLOGIC: No skin rash. NEUROLOGIC: Intubated. LABORATORY DATA: Potassium 3.4, BUN is 51, creatinine is 2.5. ASSESSMENT AND PLAN: 1. Acute kidney injury, seems to be from ischemic acute tubular necrosis the patient remains oliguric and carries a poor prognosis. Continue hydration for now. 2. Acidosis. 3. Hypokalemia. 4. Anemia. 5. Neutropenic fever. 6. History of ovarian cancer with history of ascites and acute hypoxic respiratory failure. 7. Altered mentation. Prognosis remains poor. Continue hydration. Avoid nephrotoxins. Renally dose her medications. Agree with half NS with bicarb. Continue broad-spectrum antibiotics. We will follow the case along with other subspecialists and primary team. Thank you for the consult. Job ID: [id number]
[2020-05-23] MEDS: Cefepime 1 GM in Sodium Chloride 0.9% 100 ML IVPB SCH (17:00)
[2020-05-23] MEDS: Norepinephrine 8 MG/0.9% NS 250 ML IVPB PRN (22:32)
[2020-05-24] MEDS: Cefepime 1 GM in Sodium Chloride 0.9% 100 ML IVPB SCH ×2 (05:00→17:32)
[2020-05-24] MEDS: Amiodarone 450 MG, Admixture Fee 1 EACH in Dextrose 5% in Water 250 ML IVPB SCH ×2 (05:00→21:00)
[2020-05-24] MEDS: HumaLOG 300 UNITS/3 ML VIAL SC PRN ×4 (05:14→22:58)
[2020-05-24 05:29] LABS: Hemoglobin 9.1 g/dL (12.0-16.0); Mean Corpuscular HGB CONC 35.3 g/dL (32.0-36.0); Mean Corpuscular Hemoglobin 32.5 pg (27.0-31.0); Mean Corpuscular Volume 92.1 fL (78.0-98.0); Mean Platelet Volume 13.5 fL (7.4-10.4); Platelet Count 6 thou/uL (130-400); RBC Distribution Width 11.6 % (11.5-14.5); Red Blood Cell (RBC) Count 2.81 mill/uL (4.20-5.40); White Blood Cell (WBC) Count 37.3 thou/uL (4.8-10.8)
[2020-05-24 05:51] LABS: Band 3 % (5-11); Lymphocytes 7 % (21-51); MDiff Complete? YES; Metamyelocyte 2 % (0-0); Monocytes 4 % (0-10); Neutrophil 84 % (42-75); Platelet Morphology Comment Appears Decreased
[2020-05-24 08:00] LABS: Base Excess (BEa) -9.4 mEq/L (-2.0 to +3.0); Calcium, Ionized (arterial) 1.08 mmol/L (1.12-1.30); Carboxyhemoglobin (COHb) 0.6 gm% (0.0-3.0); Hemoglobin (Hb) 9.4 g/dL (12.0-16.0); O2 Tension (PaO2), arterial 69.5 mmHg (> 70.0); Potassium - ABG Lab 3.06 mmol/L (3.70-5.30)
[2020-05-24 08:30] LABS: CO2 Tension 23.3 mmHg (35.0-45.0); Puncture Site LRA
[2020-05-24 08:31] LABS: ALV-art Gradient 186.575 (0-20)
--- NOTE | 2020-05-24 08:47 | PDOC.HOSPP ---
- Subjective Encounter Date: 05/23/20 Encounter Time: 11:15 Subjective: pt intubated - Objective Vital Signs & Weight: Vital Signs (12 hours) Temp Pulse Resp BP Pulse Ox 05/24/20 07:08 80 87/42 L 05/24/20 07:06 79 25 H 98 05/24/20 06:00 25 H 05/24/20 04:00 25 H 05/24/20 03:00 98.2 F 05/24/20 02:14 82 90/47 L 05/24/20 02:00 25 H 05/24/20 00:00 25 H 05/23/20 23:00 98 F 05/23/20 22:06 82 94/46 L 05/23/20 22:00 25 H Weight Admit Weight 146 lb 9.718 oz Weight 177 lb 4.026 oz Most Recent Monitor Data Heart Rate from ECG 81 NIBP 106/49 NIBP BP-Mean 68 Respiration from ECG 25 SpO2 98 I&O: 05/23/20 05/24/20 05/25/20 06:59 06:59 06:59 Intake Total 4376 2970.3 Output Total 530 688 Balance 3846 2282.3 Result Diagrams: 05/24/20 05:00 05/24/20 11:30 Additional Labs: Accuchecks 05/24/20 05/23/20 05/23/20 05:18 22:06 16:39 POC Glucose 200 H 191 H 181 H 05/23/20 10:42 POC Glucose 173 H Hospitalist ROS - Review of Systems Other: unable to obtain - Medication Medications: Active Medications Generic Name Dose Route Start Last Admin Trade Name Freq PRN Reason Stop Dose Admin Albuterol/Ipratropium 3 ml 05/21/20 18:30 05/24/20 07:06 Duoneb NEB 3 ml [id number] MAYRA Administration Enoxaparin Sodium 40 mg 05/19/20 09:00 05/23/20 08:56 Lovenox SC Not Given 09 MAYRA Norepinephrine Bitartrate 250 mls @ 0 mls/hr 05/18/20 23:12 05/23/20 22:32 Levophed IVPB 250 mls PRN PRN Administration To maintain MAP > 65 Protocol Titrate Fentanyl Citrate 2,000 mcg/ 100 mls @ 0 mls/hr 05/21/20 15:02 05/23/20 05:21 Sodium Chloride IV 06/20/20 15:02 100 mls INF MAYRA Administration Protocol Per Protocol Amiodarone HCl 450 mg/ 259 mls @ 0 mls/hr 05/21/20 19:45 05/24/20 05:00 Miscellaneous Medication 1 IVPB 259 mls each/ Dextrose/Water INF MAYRA Administration Protocol As Directed Sodium Bicarbonate 75 meq/ 1,075 mls @ 75 mls/hr 05/22/20 17:30 05/23/20 20: 19 Sodium Chloride IV 1,075 mls .[id number] MAYRA Administration Cefepime HCl 1 gm/ Sodium 100 mls @ 200 mls/hr 05/23/20 18:00 05/24/20 05:00 Chloride IVPB 100 mls 0600,1800 MAYRA Administration Insulin Human Lispro 0 units 05/18/20 21:32 05/24/20 05:14 Humalog SC 2 unit .MILD SLIDING SCALE PRN Administration Mild Correctional Scale Loperamide HCl 2 mg 05/19/20 13:20 05/20/20 09:04 Imodium PO 2 mg Q2H PRN Administration Diarrhea/Loose Stools Methylprednisolone Sodium Succinate 80 mg 05/22/20 09:00 05/23/20 08:57 Solu-Medrol IVP 80 mg DAILY MAYRA Administration Ondansetron HCl 4 mg 05/18/20 20:43 05/19/20 17:42 Zofran IVP 4 mg Q6H PRN Administration Nausea/Vomiting Sodium Bicarbonate 650 mg 05/22/20 21:00 05/23/20 20:20 Bicarbonate, Sodium PO Not Given TID [facility] Vancomycin HCl 125 mg 05/20/20 09:00 05/23/20 08:58 First Vancomycin PO 125 mg DAILY MAYRA Administration - Exam Neck: negative: supple, symmetric, no JVD, no thyromegaly, no lymphadenopathy, no carotid bruit, JVD Heart: negative: RRR, no murmur, no gallops, no rubs, normal peripheral pulses, irregular, diminshed peripheral pulses, murmur present, II/IV, III/IV Respiratory: negative: CTAB, no wheezes, no rales, no ronchi, normal chest expansion, no tachypnea, normal percussion, rales, rhonchi, tachypneic, wheezes Gastrointestinal: soft, normal bowel sounds Gastrointestinal - other findings: mild distention Extremities: 2+ LE edema Hosp A/P (1) Acute respiratory failure with hypoxia and hypercapnia Code(s): J96.01 - ACUTE RESPIRATORY FAILURE WITH HYPOXIA; J96.02 - ACUTE RESPIRATORY FAILURE WITH HYPERCAPNIA Status: Acute (2) REJI (acute kidney injury) Code(s): N17.9 - ACUTE KIDNEY FAILURE, UNSPECIFIED Status: Acute (3) Metabolic acidosis Code(s): E87.2 - ACIDOSIS Status: Acute (4) C. difficile diarrhea Code(s): A04.72 - ENTEROCOLITIS D/T CLOSTRIDIUM DIFFICILE, NOT SPCF RECUR Status: Acute (5) Neutropenia Code(s): D70.9 - NEUTROPENIA, UNSPECIFIED Status: Acute (6) Ovarian cancer Status: Acute (7) Atrial fibrillation Code(s): I48.91 - UNSPECIFIED ATRIAL FIBRILLATION Status: Acute - Plan pt on amiodarone drip and still not controlled. Her blood pressure is marginal. will give one dose of digoxin and see if it helps. She received one yest. pt was given platelets. Abx continued for now. Pt has no urine output will give her bicarb with 1/2ns. She is not having diarrhea but has significant acidosis. Abd ultrasound minimal ascites no paracentesis was done. pt's is cdiff antigen positive not toxin. She continues to be on levophed with minimal response. She is also getting albumin. She is on steroids also. Overall prognosis is poor. Pt not a candidate for AC due to low platelets. / pt's creatinine worse, will get nephrology to see pt. However her prognosis is poor. Pulmonary spoke with pt and made her DNAR. will replace electrolytes.
[2020-05-24] MEDS: methylPREDNISolone Sod Succ/PF 125 MG/2 ML VIAL IVP SCH (09:30)
[2020-05-24] MEDS: Enoxaparin Sodium 40 MG/0.4 ML SYRINGE SC SCH (09:31)
[2020-05-24] MEDS: Vancomycin HCl 25 MG/ML Oral PO SCH (09:32)
[2020-05-24] MEDS: Sodium Bicarbonate Tab 325 MG TAB PO SCH (09:32)
--- NOTE | 2020-05-24 09:53 | PRG ---
DATE OF SERVICE: 05/24/2020 SUBJECTIVE: The patient remains intubated on mechanical ventilation. There had been no acute changes. OBJECTIVE: VITAL SIGNS: Temperature 98.2, pulse 80, blood pressure 111/54, O2 saturation 99%. 24-hour intake 2970, output 688. HEENT: Unremarkable. NECK: No JVD. LUNGS: Coarse breath sounds. CARDIAC: S1, S2. Regular. ABDOMEN: Soft, slightly distended. EXTREMITIES: Right groin triple lumen. LABORATORY DATA: Chemistry was not performed today. PH of 7.40, pCO2 of 23, pO2 of 69 on SIMV rate 25, tidal volume 450, PEEP 10, pressure support 10, FiO2 of 40%. White blood cell count 37.3, hemoglobin 9.1, hematocrit 25.9, and platelet count 6. Chest x-ray shows infiltrative changes on the right. ASSESSMENT: 1. Acute respiratory failure, requiring mechanical ventilation. 2. Peritoneal carcinomatosis. 3. Acute renal failure. 4. Severe thrombocytopenia with no evidence of bleeding. PLAN: In reviewing the notes, there appears to be no hope for reasonable survival in this case. I believe the family is considering extubation tomorrow. She is not weanable at this time. Job ID: [id number]
--- NOTE | 2020-05-24 09:58 | RAD ---
CHEST 1 VIEW: HISTORY: Pneumonia. COMPARISON: Radiograph of 05/21/2020. FINDINGS: The patient is intubated with endotracheal tube tip above the margo 3.8 cm. Small effusions. Mild background pulmonary edema. No pneumothorax. There is a prominent right skin fold along the lung apex. IMPRESSION: 1. Endotracheal tube tip at the level of the clavicles in good position. 2. Enteric tube tip below the diaphragm and out of the field of view. 3. Moderate pleural effusions. POS: HOME
[2020-05-24 12:11] LABS: Anion Gap 19 mmol/L (10-20); BUN (Urea Nitrogen) 70 mg/dL (9.8-20.1); Calc. Creatinine Clearance 21 mL/min (70-130); Calcium 7.5 mg/dL (7.8-10.44); Carbon Dioxide 13 mmol/L (23-31); Chloride 107 mmol/L (98-107); Estimated GFR-MDRD 15; Glucose 186 mg/dL (83-110); Potassium 3.3 mmol/L (3.5-5.1); Sodium 136 mmol/L (136-145)
--- NOTE | 2020-05-24 12:11 | PRG ---
DATE OF SERVICE: 05/24/2020 SUBJECTIVE: A 75-year-old female being seen for acute kidney injury. The patient is resting. OBJECTIVE: GENERAL: On exam, the patient is resting. VITAL SIGNS: Afebrile, pulse 75, breathing at 16, and blood pressure 108/48. HEENT: Head normocephalic and atraumatic. Eyes intact, no ulcers. Nose intact, no ulcers. Ears intact, no ulcers. NECK: Supple. No JVD. CHEST: Symmetrical and clear. CARDIOVASCULAR: Shows S1 and S2, no rub, no murmur. GASTROINTESTINAL: Abdomen is soft, bowel sounds positive. EXTREMITIES: Show no edema or ulcers. SKIN: Shows no rash or petechiae. MUSCULOSKELETAL: Shows no joint swelling or stiffness. GENITOURINARY: Shows no Parks or CVA tenderness. NEUROLOGIC: Motor intact. Cranial nerves intact. LABORATORY DATA: Hemoglobin is 9.1. Creatinine is 2.5, today's creatinine is pending. ASSESSMENT AND PLAN: 1. Acute kidney injury with chronic kidney disease. Recheck labs. 2. Hypertension, stable. 3. Anemia, stable. 4. Metastatic cancer. Management per Primary Team. Prognosis is poor. Job ID: [id number]
[2020-05-24] MEDS: Sodium Bicarbonate 75 MEQ in Sodium Chloride 0.45% 1,000 ML IV SCH (12:19)
--- NOTE | 2020-05-24 15:01 | PDOC.HOSPP ---
- Subjective Encounter Date: 05/24/20 Encounter Time: 12:30 Subjective: pt intubated. off sedation does not do much. she does not follow commands - Objective Vital Signs & Weight: Vital Signs (12 hours) Temp Pulse Resp BP Pulse Ox 05/24/20 14:36 79 99/47 L 05/24/20 14:35 79 25 H 98 05/24/20 14:00 25 H 05/24/20 12:00 99.1 F 25 H 05/24/20 10:44 83 25 H 90/44 L 99 05/24/20 10:00 25 H 05/24/20 08:00 99.4 F 25 H 98 05/24/20 07:08 80 87/42 L 05/24/20 07:06 79 25 H 98 05/24/20 06:00 25 H 05/24/20 04:00 25 H 05/24/20 03:00 98.2 F Weight Admit Weight 146 lb 9.718 oz Weight 177 lb 4.026 oz Most Recent Monitor Data Heart Rate from ECG 80 NIBP 118/69 NIBP BP-Mean 85 Respiration from ECG 15 SpO2 97 I&O: 05/23/20 05/24/20 05/25/20 06:59 06:59 06:59 Intake Total 4376 2970.3 Output Total 530 688 200 Balance 3846 2282.3 -200 Result Diagrams: 05/24/20 05:00 05/24/20 11:30 Additional Labs: Accuchecks 05/24/20 05/24/20 05/23/20 11:28 05:18 22:06 POC Glucose 195 H 200 H 191 H 05/23/20 16:39 POC Glucose 181 H Hospitalist ROS - Review of Systems Other: pt intubated - Medication Medications: Active Medications Generic Name Dose Route Start Last Admin Trade Name Freq PRN Reason Stop Dose Admin Albuterol/Ipratropium 3 ml 05/21/20 18:30 05/24/20 14:35 Duoneb NEB 3 ml [id number] MAYRA Administration Norepinephrine Bitartrate 250 mls @ 0 mls/hr 05/18/20 23:12 05/23/20 22:32 Levophed IVPB 250 mls PRN PRN Administration To maintain MAP > 65 Protocol Titrate Fentanyl Citrate 2,000 mcg/ 100 mls @ 0 mls/hr 05/21/20 15:02 05/23/20 05:21 Sodium Chloride IV 06/20/20 15:02 100 mls INF MAYRA Administration Protocol Per Protocol Amiodarone HCl 450 mg/ 259 mls @ 0 mls/hr 05/21/20 19:45 05/24/20 05:00 Miscellaneous Medication 1 IVPB 259 mls each/ Dextrose/Water INF MAYRA Administration Protocol As Directed Sodium Bicarbonate 75 meq/ 1,075 mls @ 75 mls/hr 05/22/20 17:30 05/24/20 12: 19 Sodium Chloride IV 1,075 mls .[id number] MAYRA Administration Cefepime HCl 1 gm/ Sodium 100 mls @ 200 mls/hr 05/23/20 18:00 05/24/20 05:00 Chloride IVPB 100 mls 0600,1800 MAYRA Administration Insulin Human Lispro 0 units 05/18/20 21:32 05/24/20 11:28 Humalog SC 2 unit .MILD SLIDING SCALE PRN Administration Mild Correctional Scale Loperamide HCl 2 mg 05/19/20 13:20 05/20/20 09:04 Imodium PO 2 mg Q2H PRN Administration Diarrhea/Loose Stools Methylprednisolone Sodium Succinate 80 mg 05/22/20 09:00 05/24/20 09:30 Solu-Medrol IVP 80 mg DAILY MAYRA Administration Ondansetron HCl 4 mg 05/18/20 20:43 05/19/20 17:42 Zofran IVP 4 mg Q6H PRN Administration Nausea/Vomiting Sodium Bicarbonate 650 mg 05/22/20 21:00 05/24/20 09:32 Bicarbonate, Sodium PO Not Given TID [facility] Vancomycin HCl 125 mg 05/20/20 09:00 05/24/20 09:32 First Vancomycin PO 125 mg DAILY MAYRA Administration - Exam Neck: negative: supple, symmetric, no JVD, no thyromegaly, no lymphadenopathy, no carotid bruit, JVD Heart: negative: RRR, no murmur, no gallops, no rubs, normal peripheral pulses, irregular, diminshed peripheral pulses, murmur present, II/IV, III/IV Respiratory: negative: CTAB, no wheezes, no rales, no ronchi, normal chest expansion, no tachypnea, normal percussion, rales, rhonchi, tachypneic, wheezes Gastrointestinal: soft, normal bowel sounds Gastrointestinal - other findings: mild distention Extremities: 2+ LE edema Hosp A/P (1) Acute respiratory failure with hypoxia and hypercapnia Code(s): J96.01 - ACUTE RESPIRATORY FAILURE WITH HYPOXIA; J96.02 - ACUTE RESPIRATORY FAILURE WITH HYPERCAPNIA Status: Acute (2) REJI (acute kidney injury) Code(s): N17.9 - ACUTE KIDNEY FAILURE, UNSPECIFIED Status: Acute (3) Metabolic acidosis Code(s): E87.2 - ACIDOSIS Status: Acute (4) C. difficile diarrhea Code(s): A04.72 - ENTEROCOLITIS D/T CLOSTRIDIUM DIFFICILE, NOT SPCF RECUR Status: Acute (5) Neutropenia Code(s): D70.9 - NEUTROPENIA, UNSPECIFIED Status: Acute (6) Ovarian cancer Status: Acute (7) Atrial fibrillation Code(s): I48.91 - UNSPECIFIED ATRIAL FIBRILLATION Status: Acute - Plan pt on amiodarone drip and still not controlled. Her blood pressure is marginal. will give one dose of digoxin and see if it helps. She received one yest. pt was given platelets. Abx continued for now. Pt has no urine output will give her bicarb with 1/2ns. She is not having diarrhea but has significant acidosis. Abd ultrasound minimal ascites no paracentesis was done. pt's is cdiff antigen positive not toxin. She continues to be on levophed with minimal response. She is also getting albumin. She is on steroids also. Overall prognosis is poor. Pt not a candidate for AC due to low platelets. 05/23 pt's creatinine worse, will get nephrology to see pt. However her prognosis is poor. Pulmonary spoke with pt and made her DNAR. will replace electrolytes. 05/24 spoke with pt's and asked him to come and see the patient since her condition continues to worsen. Her platelets are 6. Her wbc is elevated due to granix. Rate controlled not a candidate for AC due to her low platelets.
[2020-05-24] MEDS: fentaNYL Citrate/PF 2,000 MCG in Sodium Chloride 0.9% 60 ML IV SCH (20:12)
[2020-05-25] MEDS: Sodium Bicarbonate 75 MEQ in Sodium Chloride 0.45% 1,000 ML IV SCH (02:40)
[2020-05-25 05:10] LABS: Anion Gap 22 mmol/L (10-20); BUN (Urea Nitrogen) 84 mg/dL (9.8-20.1); Calc. Creatinine Clearance 19 mL/min (70-130); Calcium 7.5 mg/dL (7.8-10.44); Carbon Dioxide 14 mmol/L (23-31); Chloride 105 mmol/L (98-107); Estimated GFR-MDRD 14; Glucose 227 mg/dL (83-110); Potassium 3.5 mmol/L (3.5-5.1); Sodium 137 mmol/L (136-145)
[2020-05-25 05:11] LABS: Platelet Count 12 thou/uL (130-400); White Blood Cell (WBC) Count 60.5 thou/uL (4.8-10.8)
[2020-05-25 05:27] LABS: Band 9 % (5-11); Hypochromia SLIGHT = 6-15 cells (100X) (0-5/hpf); Lymphocytes 5 % (21-51); MDiff Complete? YES; Mean Corpuscular HGB CONC 32.2 g/dL (32.0-36.0); Mean Corpuscular Hemoglobin 29.2 pg (27.0-31.0); Mean Corpuscular Volume 90.8 fL (78.0-98.0); Mean Platelet Volume 14.5 fL (7.4-10.4); Metamyelocyte 3 % (0-0); Monocytes 15 % (0-10); Neutrophil 68 % (42-75); Platelet Morphology Comment Appears Decreased; RBC Distribution Width 11.9 % (11.5-14.5); Red Blood Cell (RBC) Count 3.08 mill/uL (4.20-5.40)
[2020-05-25] MEDS: HumaLOG 300 UNITS/3 ML VIAL SC PRN (06:12)
[2020-05-25] MEDS: Cefepime 1 GM in Sodium Chloride 0.9% 100 ML IVPB SCH (07:12)
[2020-05-25 07:18] VITALS: TEMP 99
[2020-05-25] MEDS: Sodium Bicarbonate Tab 325 MG TAB PO SCH (07:36)
[2020-05-25 07:50] VITALS: BP 109/49
[2020-05-25] MEDS: methylPREDNISolone Sod Succ/PF 125 MG/2 ML VIAL IVP SCH (08:55)
[2020-05-25] MEDS: Vancomycin HCl 25 MG/ML Oral PO SCH (09:03)
[2020-05-25] MEDS ORDERED: Fentanyl 100 MCG/2 ML VIAL SLOW IVP PRN (09:34)
[2020-05-25] MEDS ORDERED: Sodium Bicarbonate 75 MEQ in Sodium Chloride 0.45% 1,000 ML IV SCH (09:35)
[2020-05-25] MEDS ORDERED: Lorazepam 2 MG/ML VIAL ONE (09:44)
--- NOTE | 2020-05-25 09:57 | PDOC.PALPN ---
Palliative Progress Note - Subjective Intubated, mechanical ventilation. Awakens with stimuli. Poor prognosis, elevated white count, low platelets, kidney injury - Objective Vital Signs: Vital Signs - Most Recent Temp Pulse Resp BP Pulse Ox 99.0 F 80 25 H 109/49 L 99 05/25/20 07:00 05/25/20 07:48 05/25/20 08:00 05/25/20 07:48 05/25/20 08:00 - Physical Exam Constitutional: encephalitic, ill appearing HEENT: EOMI, moist MMs, sclera anicteric Deviation from normal: mechanical ventilation Cardiovascular: RRR, diminished peripheral pulses Gastrointestinal: incontinent Genitourinary: barber catheter Deviation from normal: Poor urine output Musculoskeletal: edema present Neurology: no focal deficits Skin: fragile Deviation from normal: Opens eyes with stimulation - Assessment (1) Palliative care encounter Code(s): Z51.5 - ENCOUNTER FOR PALLIATIVE CARE Status: Acute (2) Neutropenic fever Code(s): D70.9 - NEUTROPENIA, UNSPECIFIED; R50.81 - FEVER PRESENTING WITH CONDITIONS CLASSIFIED ELSEWHERE Status: Acute (3) Ascites Code(s): R18.8 - OTHER ASCITES Status: Acute (4) Ovarian cancer Status: Acute - Plan Plan: Dr Quintanilla met with family 05/24/2020, Dr Dubon met with them this morning. Family electing to transition care to comfort measures and extubate patient. Patient Femi and daughter Samantha at bedside, continued to do another life review with family. Emotional support offered. Spoke with Dr Quintanilla. Confirmed extubation with comfort measures. [50] minutes spent on this encounter with >50% of the time in counseling and coordination of care. - ROS Non Response: due to endotracheal tube, due to mental status
[2020-05-25] MEDS ORDERED: Lorazepam 2 MG/ML VIAL SLOW IVP SCH (10:00)
[2020-05-25] MEDS ORDERED: Morphine 4 MG/ML VIAL SLOW IVP PRN (11:58)
[2020-05-25] MEDS ORDERED: Morphine 4 MG/ML VIAL ONE (11:58)
[2020-05-25] MEDS ORDERED: Morphine 4 MG/ML VIAL SLOW IVP SCH (12:00)
[2020-05-25] MEDS ORDERED: Morphine 2 MG/ML VIAL SLOW IVP SCH (12:30)
--- NOTE | 2020-05-25 14:52 | PRG ---
DATE OF SERVICE: 05/25/2020 SUBJECTIVE: Mago Whitlock has not made any improvement. OBJECTIVE: VITAL SIGNS: Heart rates in the 80s, blood pressure is in the 90 to 100 range, respiratory rates in the teens. LUNGS: Remarkable for coarse equal breath sounds. HEART: Regular rhythm. ABDOMEN: Soft. She is basically anuric renal failure. LABORATORY DATA: White count is up to 60,000, hemoglobin is 9, and platelets 12,000. BUN is 84, creatinine is 3.3. PH 7.4 yesterday, CO2 of 23, and PO2 of 69. IMPRESSION: Multiorgan dysfunction after clinical sepsis after chemotherapy for peritoneal cancer. Family wants her extubated and comfort care moving forward. I met with the and daughter and answered all their questions. She hallucinates on morphine, so we will give her p.r.n. fentanyl. Job ID: [id number]
--- NOTE | 2020-05-25 21:03 | DIS ---
DATE OF ADMISSION: 05/18/2020 DATE OF DISCHARGE: 05/25/2020 SUMMARY: DATE OF : 05/25. DISCHARGE DIAGNOSES: As of the following; 1. Acute respiratory failure with hypoxemia and hypercapnia. 2. Acute kidney injury. 3. Metabolic acidosis. 4. Clostridium difficile diarrhea. 5. Neutropenia. 6. Ovarian cancer. 7. Atrial fibrillation with rapid ventricular response. 8. Thrombocytopenia. HOSPITAL COURSE: The patient is a 75-year-old female, who initially presented to the hospital on 05/18 with a complaint of fever. She was recently diagnosed with stage 3 cancer and she had received one round of chemotherapy. The patient at this time was found to be neutropenic and was put on broad-spectrum antibiotics. However, through the hospital stay, she continued to deteriorate requiring intubation. She also had worsening renal function and went into renal failure. She was also found to be metabolic acidosis most likely secondary to the renal failure. The patient also had atrial fibrillation with rapid ventricular response. She was put on amiodarone and was given multiple doses of digoxin. No anticoagulation was given since her platelets were very low. She was transfused with platelets and also; however, with no significant response. The patient continued to deteriorate clinically. She initially was a DNAR; however, her family then made her full code and then the patient's family wanted the patient back to be DNR and also wanted terminal extubation. The patient clinically was not improving. The patient was terminally extubated on 05/25 and she at 1:40 p.m. Family was at bedside when this occurred. Job ID: [id number]
== END 2020-05-25 15:28 | disposition expired | DRG 871 ==
LOC: ONC 17:54 → CCU 23:36
PROVIDERS: ADMIT Family Medicine; ATTEND Family Medicine
PROC: 3E033XZ Introduction of Vasopressor into Peripheral Vein, Percutaneous Approach (ICD-10-PCS; principal; 2020-05-18)
PROC: 0BH18EZ Insertion of Endotracheal Airway into Trachea, Via Natural or Artificial Opening Endoscopic (ICD-10-PCS; 2020-05-21)
PROC: 5A1945Z Respiratory Ventilation, 24-96 Consecutive Hours (ICD-10-PCS; 2020-05-21)
PROC: 30233R1 Transfusion of Nonautologous Platelets into Peripheral Vein, Percutaneous Approach (ICD-10-PCS; 2020-05-21)
DX: A41.9 Sepsis, unspecified organism (principal); J96.01 Acute respiratory failure with hypoxia; J96.02 Acute respiratory failure with hypercapnia; D61.810 Antineoplastic chemotherapy induced pancytopenia; N17.0 Acute kidney failure with tubular necrosis; R65.21 Severe sepsis with septic shock; E87.2 Acidosis; A04.72 Enterocolitis due to Clostridium difficile, not specified as recurrent; C56.9 Malignant neoplasm of unspecified ovary; E87.1 Hypo-osmolality and hyponatremia; R18.8 Other ascites; C78.6 Secondary malignant neoplasm of retroperitoneum and peritoneum; N13.30 Unspecified hydronephrosis; Z20.828 Contact with and (suspected) exposure to other viral communicable diseases; Z66 Do not resuscitate; Z51.5 Encounter for palliative care; I48.91 Unspecified atrial fibrillation; R50.81 Fever presenting with conditions classified elsewhere; T45.1X5A Adverse effect of antineoplastic and immunosuppressive drugs, initial encounter; E86.0 Dehydration; K21.9 Gastro-esophageal reflux disease without esophagitis; E11.22 Type 2 diabetes mellitus with diabetic chronic kidney disease; I12.9 Hypertensive chronic kidney disease with stage 1 through stage 4 chronic kidney disease, or unspecified chronic kidney disease; N18.9 Chronic kidney disease, unspecified; Z90.710 Acquired absence of both cervix and uterus; Z79.899 Other long term (current) drug therapy; Z87.891 Personal history of nicotine dependence
CPT/HCPCS: 36415; 36416; 36430; 36600; 49083; 70450; 71045; 76705; 80048; 80053; 80162; 80202; 81001; 82805; 83735; 84100; 84145; 85025; 85049; 85300; 85362; 85379; 85384; 85610; 85730; 86850; 86900; 86901; 87040; 87086; 87324; 87449; 87493; 87635; 94002; 94003; 94640; 94660; J0171; J0282; J0692; J1160; J1447; J1650; J2060; J2250; J2270; J2405; J2930; J3010; J3370; J3480; J3490; J7050; J7070; J7620; P9035; P9047; U0003